=== PATIENT | male | born 1935 | race Caucasian/White ===

== ENCOUNTER 2018-05-04 11:21 | Outpatient (CLI) | payer MEDICARE, SELFPAY ==
[2018-05-05 12:06] LABS: PSA, Diagnostic 0.1 ng/ml (0-6.5)
== END 2018-05-04 11:41 ==
PROVIDERS: PCP Family Medicine; Visit Provider Urology
DX: C61 Malignant neoplasm of prostate (principal)
CPT/HCPCS: 36415; 84153

== ENCOUNTER 2018-05-10 12:34 | Outpatient (REF) | payer MEDICARE, SELFPAY ==
[2018-05-10 13:49] LABS: Sodium, Urine 95 mmol/L
[2018-05-10 13:51] LABS: Creatinine,Urine 160.13 mg/dL
[2018-05-10 13:58] LABS: CLEAVED CELLS 71 mmol/24h (40-220); Total Volume 750 ml
[2018-05-10 13:59] LABS: Creatinine,24hr Ur 1.12 g/24hr (0.95-2.49); Total Volume 750 ml
[2018-05-11 09:11] LABS: Magnesium 24hr Urine 136.5 mg/24h (73.0-122.0); Magnesium Random Urine 18.2 mg/dl; Phosphorus Urine 111.6 mg/dl; Phosphorus Urine 24hr 0.8 g/24h (0.4-1.3); Uric Acid Urine 60.7 mg/dl; Uric Acid Urine 24hr 455 mg/24h (250-750)
[2018-05-11 09:14] LABS: Calcium Urine 29.3 mg/dl; Calcium Urine 24 hr 220 mg/24hr (100-300)
[2018-05-11 16:09] LABS: Citrate Excretion, 24hr, U 635 mg/24 h; Urine Volume 750 mL
[2018-05-12 03:40] LABS: Oxalate Conc (mmol/L) 0.13 mmol/L; Oxalate Concentration 11.4 mg/L; Oxalate, U 8.8 mg/24 h (9.7 - 40.5); Urine Volume 750 mL
== END 2018-05-10 12:54 ==
LOC: LBN 12:34
PROVIDERS: PCP Family Medicine; Visit Provider Urology
DX: N20.0 Calculus of kidney (principal)
CPT/HCPCS: 82507; 83735; 81050; 82340; 82570; 83945; 84105; 84300; 84560

== ENCOUNTER 2018-08-09 11:32 | Outpatient (CLI) | payer MEDICARE, SELFPAY ==
[2018-08-10 10:09] LABS: PSA, Diagnostic 0.1 ng/ml (0-6.5)
== END 2018-08-09 11:52 ==
PROVIDERS: PCP Family Medicine; Visit Provider Urology
DX: C61 Malignant neoplasm of prostate (principal)
CPT/HCPCS: 36415; 84153

== ENCOUNTER 2018-11-05 11:28 | Outpatient (CLI) | payer MEDICARE, SELFPAY ==
[2018-11-08 11:07] LABS: PSA, Diagnostic 0.2 ng/ml (0-6.5)
== END 2018-11-05 11:48 ==
PROVIDERS: PCP Family Medicine; Visit Provider Urology
DX: R97.20 Elevated prostate specific antigen [PSA] (principal)
CPT/HCPCS: 36415; 84153

== ENCOUNTER 2019-02-08 12:53 | Outpatient (CLI) | payer MEDICARE, SELFPAY ==
[2019-02-09 09:34] LABS: PSA, Diagnostic 0.2 ng/ml (0-6.5)
== END 2019-02-08 13:13 ==
PROVIDERS: PCP Family Medicine; Visit Provider Family Medicine
DX: C61 Malignant neoplasm of prostate (principal); R97.20 Elevated prostate specific antigen [PSA]
CPT/HCPCS: 36415; 84153

== ENCOUNTER → 2019-02-24 13:48 | Outpatient (BNVA) | payer MEDICARE, SELFPAY | PROVIDERS: PCP Family Medicine; Referring Provider Family Medicine; Visit Provider Urology | DX: C61 Malignant neoplasm of prostate (principal); R39.15 Urgency of urination; Z87.442 Personal history of urinary calculi; Z90.79 Acquired absence of other genital organ(s) | CPT/HCPCS: 51798; 99203; 99214 ==

== ENCOUNTER 2019-08-22 11:54 | Outpatient (CLI) | payer MEDICARE, SELFPAY ==
[2019-08-23 10:29] LABS: PSA, Diagnostic 0.2 ng/mL (0.0-6.5)
== END 2019-08-22 12:14 ==
PROVIDERS: PCP Family Medicine; Visit Provider Urology
DX: C61 Malignant neoplasm of prostate (principal)
CPT/HCPCS: 36415; 84153

== ENCOUNTER 2019-12-16 09:54 | Outpatient (CLI) | payer MEDICARE, SELFPAY ==
[2019-12-17 23:29] LABS: COVID-19 RT-PCR Result NEGATIVE (Negative)
== END 2019-12-16 10:14 ==
PROVIDERS: PCP Family Medicine; Visit Provider Family Medicine
DX: Z20.828 Contact with and (suspected) exposure to other viral communicable diseases (principal)
CPT/HCPCS: U0003

== ENCOUNTER 2019-12-21 03:53 | Outpatient (CLI) | payer MEDICARE, SELFPAY ==
[2019-12-22 09:14] LABS: PSA, Diagnostic 0.2 ng/mL (0.0-6.5)
== END 2019-12-21 04:13 ==
PROVIDERS: PCP Family Medicine; Visit Provider Urology
DX: C61 Malignant neoplasm of prostate (principal)
CPT/HCPCS: 84153

== ENCOUNTER → 2020-01-03 13:37 | Outpatient (BNVA) | payer MEDICARE, SELFPAY | PROVIDERS: PCP Family Medicine; Referring Provider Family Medicine; Visit Provider Urology | DX: C61 Malignant neoplasm of prostate (principal); R39.15 Urgency of urination; N48.89 Other specified disorders of penis | CPT/HCPCS: 99213 ==

== ENCOUNTER 2020-04-20 11:40 | Emergency (ER) | payer MEDICARE, SELFPAY ==
[2020-04-20 11:43] VITALS: BP 147/76; PULSE 61; RESP 16; TEMP 36.4; O2SAT 97
--- NOTE | 2020-04-20 11:53 | W.ED.GENAD ---
Discharge Plan Disposition Patient Disposition: AGAINST MEDICAL ADVICE Condition: Stable Discharge Details Clinical Impression: Acute subdural hematoma, Right wrist sprain, Facial contusion, Fall Primary Care Provider: Arianne Tesfaye ED Provider: Laura David Home Meds and New Rx's Prescriptions: Continued selenium sulfide 2.5 % lotion See Rx Instructions Topical Q48 H PRN (Reason: rash) Qty: 120 RF: 10 ascorbic acid (vitamin C) 1,000 MG tablet 1,000 mg PO DAILY RF: 0 ibuprofen [Motrin IB] 200 MG tablet 2 tab PO QID PRNRF: 0 vitamin B complex [B Complete] 1 EACH tablet 1 ea PO DAILY RF: 0 glucosam-chond qu-tbumzk-uj ac 1 EACH capsule 2 cap PO DAILY RF: 0 BERBERIS 1 cap PO DAILY RF: 0 Curcumin 1 GM powder 1 cap Miscellaneous DAILY RF: 0 cholecalciferol (vitamin D3) [Vitamin D3] 2,000 UNIT capsule 2,000 unit PO BID RF: 0 cod liver oil (bulk) 1 ML oil 1 tsp Miscellaneous DAILY RF: 0 resveratrol 50 MG capsule 50 mg PO DAILY RF: 0 amlodipine 5 mg tablet 5 mg PO DAILY Qty: 90 RF: 4 Discharge Instructions Instructions: Intracranial Hematoma (ED), Contusion in Adults (ED), Wrist Sprain (ED) Additional Instructions: You are leaving the hospital AGAINST MEDICAL ADVICE. You were found to have an acute subdural hematoma which is a bleed within your brain. The bleeding in your brain can worsen which can lead to any disability or even . You are advised to call your primary care doctor immediately today or Thursday for follow-up. If your wrist pain persists or worsens, follow-up with your primary care doctor for reevaluation or repeat x-ray. You can also follow-up with orthopedics for further evaluation. Please return immediately to the emergency department if you develop any worsening or new concerning symptoms. Referrals: Emerson Robles MD [ [facility]FF PHYSICIAN] - Discharge Data Discharge Date/Time-TO BE ENTERED AT DEPARTURE: 04/20/20 15:15 Discharge Physician: Laura David Medical Decision Making 1130 -- 84-year-old male with a history of hypertension not on anticoagulation presents for evaluation after sent by Dr. Tesfaye for head injury 2 days ago. He states he tripped while he was walking and hit the right side of his face and head on the sidewalk. No report of LOC or vomiting. He appears in no acute distress. He also fell onto his right wrist and is having most pain with flexion and extension. There is significant edema to his right dorsal wrist but no deformity and he is neurovascular intact. He has ecchymosis to the right lateral orbit but no entrapment, edema. No midline spinal tenderness. No focal deficits. Will obtain CT head/facial bone/cervical spine and right wrist x-ray. Will give a dose of Tylenol. 1315 -- radiologist who reviewed CT images, there is a 730 mm subdural hematoma in the right temporoparietal region. No midline shift. Case discussed with [facility] to consult neurosurgery. 1415 -- called [facility] to confirm whether they have reached [facility] and they are still trying. 1500 --patient is requesting to leave. Discussed with patient that I am still waiting to hear from [facility] but he states he has no symptoms at this time and would prefer to go home. Despite my efforts, the patient has decided to leave against medical advice. He has a normal mental status and full decisional capacity. The patient understands his condition and the risks of leaving AMA, including BUT NOT LIMITED TO permanent disability, , etc., and has had an opportunity to ask questions about his medical condition. The patient has been informed that he may return for care at any time, and has been referred to his local medical physician for follow up MICHAEL. Patient stated that he had discussed his results with his family and they are aware of his decision. After patient discharge, [facility] returned the call at approximately 4 PM stating that they reviewed the images and would recommend patient be admitted to the hospital for observation and repeat CT imaging for determining any worsening hematoma. They were notified that patient left AMA. Called patient at home to check on him and he stated that he still remained asymptomatic. He was informed that [facility] agreed that he should be admitted for observation and repeat CT head imaging. Patient is still declining to return and is aware of the risks of and disability. He demonstrates capacity to make decisions. I asked patient if he would like me to call his daughter and he states that he has already discussed with his family and feels that there is no need. He is advised to call Dr. Tesfaye on Thursday morning for follow-up and return here immediately with any concerns. Medical Records Medical records reviewed: Yes I reviewed the patient's medical records. Imaging Data Radiologic Study: Radiologist's impression: CT HEAD CERV SPINE FACIAL WO CLINICAL HISTORY: s/p fall, R orbit ecchymoses, r/o fx. TECHNIQUE: Imaging Protocol: Axial computed tomography images with coronal and sagittal reformatted images were created and reviewed COMPARISON: CT HEAD WITHOUT CONTRAST from 11/30/2010 FINDINGS: CT Head: Ventricles and Extra axial spaces: Normal in size and morphology for the patient's age. Hemorrhage: There is a acute right convexity subdural hematoma. It measures approximately 7 mm in maximum thickness. The hematoma lies deep to the right frontal and temporal bones. There is no midline shift. Cerebral parenchyma: There are areas of decreased attenuation in the white matter most consistent with chronic microvascular ischemic changes. Midline shift: None. Brainstem/Cerebellum: Normal. Calvarium: Normal. Visualized Paranasal sinuses/Mastoids: Clear. Soft Tissues: Unremarkable. CT Face: Facial Bones: No definite fracture is noted in facial bones. Sinuses and Mastoids: Unremarkable. Globes, extraocular muscles, optic nerves and retrobulbar fat: Normal. Upper aerodigestive tract: Normal. Mandible and bilateral temporomandibular joints: Normal. Soft tissues: Normal. CT Cervical Spine: Bones: No acute fracture or subluxation. Moderate degenerative changes are present throughout the cervical spine. Soft Tissues: Unremarkable. Lung Apices: Clear. IMPRESSION: 1. Right frontal temporal acute subdural hematoma. No midline shift. It measures 7 mm in maximal thickness. 2. No skull fracture. 3. No acute fracture or subluxation in the cervical spine. 4. No acute facial fracture. 5. Results of this exam have been verbally communicated with provider. XR WRIST RT COMPLETE CLINICAL HISTORY: s/p fall, edema/tender dorsal, r/o acute fracture. TECHNIQUE: 2D digital imaging was performed. COMPARISON: No exams were available for comparison FINDINGS: BONES: No acute fracture is present. No bony destructive lesion is seen. JOINTS: The carpal bones are normally aligned. There are degenerative changes of the wrist. SOFT TISSUE: Normal. IMPRESSION: No acute fracture or dislocation. HPI General Mode of arrival: ambulatory. Date/Time Provider Initiated Documentation: 04/20/20 11:52. Limitations to Documentation: no limitations. Information obtained by: patient. HPI Narrative: Patient is a an 84-year-old male with a history of prostate cancer treated with prostatectomy, hypertension and previous HI who presents for evaluation after fall with head injury and right wrist pain 2 days ago. Patient states he was walking on the sidewalk around 6 PM Thursday evening when he states he tripped on the sidewalk and hit his right head on the ground. He states he was able to get himself up and denies any LOC, vomiting, headache, dizziness or neck pain. Patient states over the next 4 hours he has some memory loss about the events. He states he did sustain a bruise to his right thigh and injury to his right wrist but he states since later that evening until now has no complaint of headache, dizziness, neck pain, nausea, vomiting or any other ongoing memory issues. Patient states he put his right hand out to brace his fall and has right wrist pain that occurs mainly with flexion and extension. He also states that he called his primary care doctor today and they advised that he come in here for further evaluation. Denies any chest pain, shortness of breath, abdominal pain or any other acute complaints other than his right wrist pain. Related Data Home Medications Medication Instructions Recorded Confirmed Berberis 1 cap PO DAILY 09/17/12 02/27/20 ascorbic acid (vitamin C) 1,000 mg PO DAILY 09/17/12 04/20/20 glucosam-chond bq-bzdvcd-md ac 2 cap PO DAILY 09/17/12 04/20/20 ibuprofen [Motrin IB] 2 tab PO QID PRN 09/17/12 04/20/20 vitamin B complex [B Complete] 1 ea PO DAILY 09/17/12 04/20/20 Curcumin 1 cap MISCELLANEOUS DAILY 09/20/12 04/20/20 cholecalciferol (vitamin D3) 2,000 unit PO BID 11/16/14 04/20/20 [Vitamin D3] cod liver oil (bulk) 1 tsp MISCELLANEOUS DAILY 12/17/15 04/20/20 resveratrol 50 mg PO DAILY 12/17/15 04/20/20 selenium sulfide 2.5 % lotion See Rx Instructions TOPICAL Q48 H 08/29/19 04/20/20 PRN #120 ml amlodipine 5 mg tablet 5 mg PO DAILY #90 tab 09/12/19 04/20/20 Previous Rx's Medication Instructions Recorded selenium sulfide 2.5 % lotion See Rx Instructions TOPICAL Q48 H 08/29/19 PRN #120 ml amlodipine 5 mg tablet 5 mg PO DAILY #90 tab 09/12/19 Allergies Allergy/AdvReac Type Severity Reaction Status Date / Time terazosin HCl [From Hytrin] AdvReac Severe orthostatic Verified 04/20/20 11:49 hypotension General Stated Complaint: Trauma SONDRA: 3 Review of Systems All systems reviewed & are unremarkable except as noted in HPI and below Constitutional Constitutional: Reports as per HPI, Denies chills and Denies fever(s) Eyes Eyes: Denies blurry vision ENT Ears, Nose, Mouth, and Throat: Denies dizziness, Denies sore throat and Denies throat swelling Cardiovascular Cardiovascular: Denies chest pain and Denies dyspnea Respiratory Respiratory: Denies cough and Denies dyspnea Gastrointestinal Gastrointestinal: Denies abdominal pain, Denies diarrhea and Denies vomiting Genitourinary Genitourinary: Denies hematuria and Denies dysuria Musculoskeletal Musculoskeletal: Denies back pain, Denies numbness and Reports other (R wrist pain) Integumentary/Breasts Skin/Breast: Denies lesions and Denies rash Neurologic Neurologic: Denies dizziness, Denies localized weakness and Denies numbness Allergic/Immunologic Allergic/Immunologic: Denies throat swelling [facility] Medical History (Updated 04/20/20 @ 15:10 by Laura David DO) Abnormal visual perception (09/11/15) Atrial arrhythmia 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 of infx cyst (Karin) prostatic stones; S/P surgery Urinary urgency Surgical History (Updated 08/29/19 @ 13:12 by Arianne Tesfaye MD, [place]) CARDIAC CATH LEFT Colonoscopy - MAC 2003;tubular adenoma History of prostate surgery History of surgical procedure PROSTATE REPAIR calcification w/ residual infx-surgery Prostatectomy Repair of inguinal hernia RIGHT Right index finger Excision of mucous cyst Status post inguinal hernia repair Family History Mother Diabetes Failure to thrive Father Stroke X 2 Asthma Sister Rheumatoid arthritis Sister Personal history of malignant neoplasm COLON Grandfather Stroke Grandfather Personal history of malignant neoplasm COLON Grandmother Personal history of malignant neoplasm BREAST Grandmother No problems noted. Son No problems noted. Son No problems noted. Daughter No problems noted. Social History Smoking/Tobacco Use Status: Former Tobacco Use Alcohol Intake: current Alcohol Intake frequency: 3 or more drinks per day Alcohol type: wine Drug use: Occasionally Substance use type: marijuana Do you feel safe in your relationship?: Yes Exam Const General: cooperative, healthy appearing and no acute distress Orientation: alert, awake and oriented x3 HENMT Head: normal to inspection Ears: hearing grossly normal bilaterally, external ears normal and TM's normal bilaterally General nose exam: external nose normal Face and sinus: normal facial exam Mouth: oral mucosae normal Teeth and gingiva: dentition normal Throat: posterior oropharynx normal Eyes General: appearance normal, both eyes and all related structures Periorbital: periorbital findings abnormal right periorbital tenderness (minimal) and periorbital ecchymosis (lateral and inferior); no erythema Eyelids: eyelids normal Pupils: PERRL EOM: EOM intact bilaterally Neck Neck: normal visual inspection Lymphatic: no lymphadenopathy noted Chest Chest: normal inspection of the chest Resp Effort & Inspection: normal respiratory effort and able to speak in complete sentences Auscultation: clear to auscultation bilaterally Cardio Rate: regular rate Rhythm: regular rhythm GI Inspection: normal to inspection Palpation: soft, not firm, no guarding, no hepatosplenomegaly, no masses and nontender Auscultation: normal bowel sounds Back/Spine/Pelvis Back: no CVA tenderness Cervical Spine: No cervical spinal tenderness Thoracic/Lumbar Spine: No thoracic spinal tenderness and No lumbar spinal tenderness Skin General skin exam: no rashes or lesions noted Neuro General: patient alert, patient awake, patient oriented x3, gait normal, moves all extremities, no meningeal signs and no focal motor deficits Cognition: normal cognition Speech: speech normal Gait: normal gait Motor: muscle tone normal throughout and strength 5/5 throughout Sensory Exam: no sensory deficits noted Extrem General: normal to inspection and capillary refill normal Right upper extremity: shoulder/upper arm Details: normal ROM, elbow/forearm Details: normal ROM and wrist Details: tenderness Location: of the distal radius, of the distal ulna and of the dorsal wrist, swelling Location: of the dorsal wrist and abnormal ROM Details: pain with active ROM during Details: with extension and with flexion and pain with passive ROM during Details: with extension and with flexion; no ecchymosis and no crepitus Left upper extremity: normal to inspection and full ROM Right lower extremity: full ROM Left lower extremity: full ROM Psych Appearance: grossly normal Mental Status: mental status grossly normal Speech and Movement: speech and movement normal Affect: normal affect Thought Process: normal Course Vital Signs Vital signs: Vital Signs Temperature 97.5 F L 04/20/20 11:43 Pulse 61 04/20/20 11:43 Respiratory Rate 16 04/20/20 11:43 Blood Pressure 147/76 H 04/20/20 11:43 Pulse Oximetry 97 04/20/20 11:43 Temperature 97.5 F L 04/20/20 11:43 Temperature Source Skin 04/20/20 11:43 Pulse 61 04/20/20 11:43 Respiratory Rate 16 04/20/20 11:43 Respiratory Effort 04/20/20 11:50 Blood Pressure 147/76 H 04/20/20 11:43 Blood Pressure Position Sitting 04/20/20 11:43 Pulse Oximetry 97 04/20/20 11:43 Oxygen Delivery Method Room Air 04/20/20 11:43 Oxygen Flow Rate 0 04/20/20 11:43 Pain Level 8 04/20/20 11:43
--- NOTE | 2020-04-20 12:00 | DI.RAD_ITS ---
EXAM: XR WRIST RT COMPLETE CLINICAL HISTORY: s/p fall, edema/tender dorsal, r/o acute fracture. TECHNIQUE: 2D digital imaging was performed. COMPARISON: No exams were available for comparison FINDINGS: BONES: No acute fracture is present. No bony destructive lesion is seen. JOINTS: The carpal bones are normally aligned. There are degenerative changes of the wrist. SOFT TISSUE: Normal. IMPRESSION: No acute fracture or dislocation. DATA REPOSITORY: RADIATION DOSE DELIVERED:
[2020-04-20] MEDS: Acetaminophen 500 MG TAB 1000 MG PO (12:24)
--- NOTE | 2020-04-20 12:46 | DI.CT_ITS ---
EXAM: CT HEAD CERV SPINE FACIAL WO CLINICAL HISTORY: s/p fall, R orbit ecchymoses, r/o fx. TECHNIQUE: Imaging Protocol: Axial computed tomography images with coronal and sagittal reformatted images were created and reviewed COMPARISON: CT HEAD WITHOUT CONTRAST from 11/30/2010 FINDINGS: CT Head: Ventricles and Extra axial spaces: Normal in size and morphology for the patient's age. Hemorrhage: There is a acute right convexity subdural hematoma. It measures approximately 7 mm in ma ximum thickness. The hematoma lies deep to the right frontal and temporal bones. There is no midlin e shift. Cerebral parenchyma: There are areas of decreased attenuation in the white matter most consistent wit h chronic microvascular ischemic changes. Midline shift: None. Brainstem/Cerebellum: Normal. Calvarium: Normal. Visualized Paranasal sinuses/Mastoids: Clear. Soft Tissues: Unremarkable. CT Face: Facial Bones: No definite fracture is noted in facial bones. Sinuses and Mastoids: Unremarkable. Globes, extraocular muscles, optic nerves and retrobulbar fat: Normal. Upper aerodigestive tract: Normal. Mandible and bilateral temporomandibular joints: Normal. Soft tissues: Normal. CT Cervical Spine: Bones: No acute fracture or subluxation. Moderate degenerative changes are present throughout the cer vical spine. Soft Tissues: Unremarkable. Lung Apices: Clear. IMPRESSION: 1. Right frontal temporal acute subdural hematoma. No midline shift. It measures 7 mm in maximal th ickness. 2. No skull fracture. 3. No acute fracture or subluxation in the cervical spine. 4. No acute facial fracture. 5. Results of this exam have been verbally communicated with provider. RADIATION DOSE DELIVERED: 2,018.14mGy.cm Total DLP DATA REPOSITORY: All CT scans at this facility are submitted to the National Radiology Data Registry (NRDR) Dose Index Registry (DIR) with the [employer] ([employer]). RADIATION OPTIMIZATION: All CT scans at this facility use at least one of these dose optimization te chniques: automated exposure control; mA and/or kV adjustment per patient size (includes targeted exa ms where dose is matched to clinical indication); or iterative reconstruction.
[2020-04-20 13:32] VITALS: BP 156/75; PULSE 59; RESP 18; TEMP 36.9; O2SAT 99
[2020-04-20 14:15] VITALS: BP 140/75; PULSE 59; RESP 18; TEMP 36.7; O2SAT 99
[2020-04-20 15:12] VITALS: BP 159/72; PULSE 60; RESP 20; TEMP 36.7; O2SAT 98
== END 2020-04-20 15:15 | disposition left against medical advice (07) ==
PROVIDERS: Emergency Provider Physician Assistant; PCP Family Medicine
DX: S06.5X0A Traumatic subdural hemorrhage without loss of consciousness, initial encounter (principal); S63.591A Other specified sprain of right wrist, initial encounter; S05.11XA Contusion of eyeball and orbital tissues, right eye, initial encounter; W01.198A Fall on same level from slipping, tripping and stumbling with subsequent striking against other object, initial encounter; I10 Essential (primary) hypertension
CPT/HCPCS: 99284; 70450; 70486; 72125; 73110; 99285; L0172

== ENCOUNTER 2020-04-21 14:02 | Emergency (ER) | payer MEDICARE, SELFPAY ==
--- NOTE | 2020-04-21 14:00 | DI.CT_ITS ---
EXAM: CT HEAD WO CLINICAL HISTORY: known subdural, left ama yesterday. TECHNIQUE: Imaging Protocol: Axial computed tomography images with coronal and sagittal reformatted images were created and reviewed COMPARISON: CT CT HEAD CERV SPINE FACIAL WO from 04/20/2020 FINDINGS: Ventricles and Extra axial spaces: Normal in size and morphology for the patient's age. Hemorrhage: The right frontal temporal high density subdural hematoma is unchanged compared to the pr ior examination. Maximum diameter is 1 cm. This is deep to the right frontal bone. No new hemorrha ge is identified. Cerebral parenchyma: There are areas of decreased attenuation in the white matter most consistent wit h chronic microvascular ischemic change. Midline shift: None. Brainstem/Cerebellum: Normal. Calvarium: Normal. Visualized Paranasal sinuses/Mastoids: Clear. Soft Tissues: Stable mild right supraorbital soft tissue edema. IMPRESSION: Stable right frontal temporal subdural hematoma. No change since the examination from 04/10/2020. RADIATION DOSE DELIVERED: 781.08mGy.cm Total DLP DATA REPOSITORY: All CT scans at this facility are submitted to the National Radiology Data Registry (NRDR) Dose Index Registry (DIR) with the [employer] ([employer]). RADIATION OPTIMIZATION: All CT scans at this facility use at least one of these dose optimization te chniques: automated exposure control; mA and/or kV adjustment per patient size (includes targeted exa ms where dose is matched to clinical indication); or iterative reconstruction.
[2020-04-21 14:10] VITALS: BP 148/86; PULSE 57; RESP 16; TEMP 36.1; O2SAT 99
--- NOTE | 2020-04-21 14:10 | ED.GENADUL_ITS ---
Discharge Plan Disposition Patient Disposition: HOME Condition: Stable Discharge Details Clinical Impression: Subdural hematoma Primary Care Provider: Arianne Tesfaye ED Provider: Wellington Wang Home Meds and New Rx's Prescriptions: New levetiracetam [Keppra] 500 mg tablet 500 mg PO BID 7 Days Qty: 14 RF: 0 Continued selenium sulfide 2.5 % lotion See Rx Instructions Topical Q48 H PRN (Reason: rash) Qty: 120 RF: 10 ascorbic acid (vitamin C) 1,000 MG tablet 1,000 mg PO DAILY RF: 0 ibuprofen [Motrin IB] 200 MG tablet 2 tab PO QID PRNRF: 0 vitamin B complex [B Complete] 1 EACH tablet 1 ea PO DAILY RF: 0 glucosam-chond fw-fquajs-qd ac 1 EACH capsule 2 cap PO DAILY RF: 0 BERBERIS 1 cap PO DAILY RF: 0 Curcumin 1 GM powder 1 cap Miscellaneous DAILY RF: 0 cholecalciferol (vitamin D3) [Vitamin D3] 2,000 UNIT capsule 2,000 unit PO BID RF: 0 cod liver oil (bulk) 1 ML oil 1 tsp Miscellaneous DAILY RF: 0 resveratrol 50 MG capsule 50 mg PO DAILY RF: 0 amlodipine 5 mg tablet 5 mg PO DAILY Qty: 90 RF: 4 Discharge Instructions Instructions: Intracranial Hematoma (ED) Additional Instructions: At this time your CT is stable. I personally spoke with neurosurgery at [facility], Dr. Barry. He recommended obtaining blood work. He recommended initiating a single gram of Keppra now and I will place you on a prescription for the next 7 days at 500 mg twice a day. He feels as though you can be safely discharged home and followed as an outpatient in his clinic. The clinic number is [phone]. His office should be calling you in approximately 1 week for outpatient evaluation in the next 2-4 weeks. They will likely perform another CT at that time. Please watch for new or worsening symptoms and return to the ER for any concerns. Discharge Data Discharge Date/Time-TO BE ENTERED AT DEPARTURE: 04/21/20 14:25 Medical Decision Making 84-year-old gentleman who is not anticoagulated presents to the ER for reeva luation. He fell 3 days ago, was seen in the ER yesterday, diagnosed with a subdural hematoma and subsequently left AMA prior to neurosurgery consultation. He denies any new or evolving symptoms since he left AMA yesterday. He thought about leaving AMA and felt as though maybe he made a mistake so came back to the ER for evaluation. Patient denies headache, visual changes, neck pain, chest pain, shortness of breath, numbness, tingling, weakness, incontinence. Patient states that he ate before he came in, is not hungry, and is willing to await a repeat CT and neurosurgery consultation. Patient appears well, nontoxic, neurologically intact. Will obtain repeat CT imaging of his head and then contact neurosurgery. CT imaging read by [facility] radiology as a unchanged subdural hematoma. Call was placed to neurosurgery at [facility]. I was able to speak with neurosurgery, Dr. Barry. He feels as though the patient can safely be discharged from our ER given the stable CT imaging. He wa s able to review the imaging himself. He does recommend a single loading dose of 1 g Keppra now and a prescription of 500 mg twice daily for the next 7 days. He also recommends obtaining a CBC and coags. He was given the patient's name and number, he gave me his clinic number. Plan is to have his office contact the patient in the next 1-2 weeks for reassessment in 2-4 weeks. They will plan to reevaluate the patient in the clinic and also repeat CT imaging. This plan was made known to patient and his . He was given 1 g p.o. Keppra and blood drawn. Laboratory values unremarkable. Patient remains neurologically intact. Patient to be discharged with the plan given by neurosurgery. Patient and family are comfortable with this plan and have no additional questions or concerns. Medical Records Medical records reviewed: Yes I reviewed the patient's medical records. Lab Data Lab results reviewed: Yes I reviewed the patient's lab results. Lab results narrative: Laboratory Tests Range/Units 04/21/20 04/21/20 15:50 15:50 WBC (4.4-10.8) 10^3/uL 6.91 RBC (4.36-5.78) 10^6/uL 4.33 L Hgb (13.5-17.5) g/dL 13.8 Hct (40.0-50.0) % 41.8 MCV (80-95) fL 96.5 H MCH (27.0-33.0) pg 31.9 MCHC (32.0-36.0) % 33.0 RDW (11.8-14.1) % 13.8 Plt Count (130-400) 10^3/uL 240 MPV (8.0-11.0) fL 8.8 Immature Gran % 0.3 Neutrophils % 67.9 Lymphocytes % 21.0 Monocytes % 9.1 Eosinophils % 1.0 Basophils % 0.7 Nucleated RBC % % 0 Absolute Neutrophils (1.2-6.7) 10^3/uL 4.69 Absolute Lymphocytes (1.2-3.4) 10^3/uL 1.45 Absolute Monocytes (0.1-0.8) 10^3/uL 0.63 Absolute Eosinophils (0.0-0.7) 10^3/uL 0.07 Absolute Basophils (0.0-0.2) 10^3/uL 0.05 PT (9.3-11.0) sec 9.4 INR (0.9-1.1) 0.9 APTT (21.0-31.4) sec 20.7 L HPI General Mode of arrival: ambulatory . Date/Time Provider Initiated Documentation: 04/21/20 14:10 . Limitations to Documentation: no limitations . Information obtained by: patient and family . HPI Narrative: This is a 84-year-old gentleman with past medical history that includes BPH, renal stones, low back pain, hypertension, [place], presenting with his family today for evaluation. Patient had a mechanical fall 3 days ago striking the right side of his head. He was seen in the ER yesterday, diagnosed with a subdural hematoma and subsequently left AMA. Patient reports that he reviewed the records today and felt as though it may be leaving AMA was the wrong thing to do. He reports that he has a subtle sensation to the right side of his head but denies any true pain. This sensation was there yesterday and has not changed. He denies global headache, visual change, neck pain, chest pain, shortness of breath, abdominal pain, nausea, vomiting, incontinence, numbness, tingling, weakness. He has not fallen since he left the ER AMA. He simply wants to make sure everything is okay. Related Data Home Medications Medication Instructions Recorded Confirmed Berberis 1 cap PO DAILY 09/17/12 04/21/20 ascorbic acid (vitamin C) 1,000 mg PO DAILY 09/17/12 04/21/20 glucosam-chond vk-glrcvo-pc ac 2 cap PO DAILY 09/17/12 04/21/20 ibuprofen [Motrin IB] 2 tab PO QID PRN 09/17/12 04/21/20 vitamin B complex [B Complete] 1 ea PO DAILY 09/17/12 04/21/20 Curcumin 1 cap MISCELLANEOUS DAILY 09/20/12 04/21/20 cholecalciferol (vitamin D3) 2,000 unit PO BID 11/16/14 04/21/20 [Vitamin D3] cod liver oil (bulk) 1 tsp MISCELLANEOUS DAILY 12/17/15 04/21/20 resveratrol 50 mg PO DAILY 12/17/15 04/21/20 selenium sulfide 2.5 % lotion See Rx Instructions TOPICAL Q48 H 08/29/19 04/21/20 PRN #120 ml amlodipine 5 mg tablet 5 mg PO DAILY #90 tab 09/12/19 04/21/20 levetiracetam [Keppra] 500 mg PO BID 7 Days #14 tab 04/21/20 Previous Rx's Medication Instructions Recorded selenium sulfide 2.5 % lotion See Rx Instructions TOPICAL Q48 H 08/29/19 PRN #120 ml amlodipine 5 mg tablet 5 mg PO DAILY #90 tab 09/12/19 levetiracetam [Keppra] 500 mg PO BID 7 Days #14 tab 04/21/20 Allergies Allergy/AdvReac Type Severity Reaction Status Date / Time terazosin HCl [From Hytrin] AdvReac Severe orthostatic Verified 04/21/20 14:16 hypotension General SONDRA: 3 Review of Systems Constitutional Constitutional: Denies fever(s), Denies headache(s) and Denies weakness Eyes Eyes: Denies change in vision ENT Ears, Nose, Mouth, and Throat: Denies headache(s) and Denies neck pain Cardiovascular Cardiovascular: Denies chest pain and Denies dyspnea Respiratory Respiratory: Denies cough and Denies dyspnea Gastrointestinal Gastrointestinal: Denies abdominal pain, Denies nausea and Denies vomiting Musculoskeletal Musculoskeletal: Denies neck pain, Denies numbness and Denies tingling Neurologic Neurologic: Denies headache(s), Denies numbness, Denies tingling and Denies weakness [facility] Medical History Abnormal visual perception (09/11/15) Atrial arrhythmia 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 of infx cyst (Karin) prostatic stones; S/P surgery Urinary urgency Surgical History CARDIAC CATH LEFT Colonoscopy - MAC 2003;tubular adenoma History of prostate surgery History of surgical procedure PROSTATE REPAIR calcification w/ residual infx-surgery Prostatectomy Repair of inguinal hernia RIGHT Right index finger Excision of mucous cyst Status post inguinal hernia repair Family History Mother Diabetes Failure to thrive Father Stroke X 2 Asthma Sister Rheumatoid arthritis Sister Personal history of malignant neoplasm COLON Grandfather Stroke Grandfather Personal history of malignant neoplasm COLON Grandmother Personal history of malignant neoplasm BREAST Grandmother No problems noted. Son No problems noted. Son No problems noted. Daughter No problems noted. Social History Smoking/Tobacco Use Status: Former Tobacco Use Alcohol Intake: current Alcohol Intake frequency: 3 or more drinks per day Alcohol type: wine Drug use: Occasionally Substance use type: marijuana Do you feel safe in your relationship?: Yes Exam Const General: cooperative, healthy appearing, comfortable and no acute distress Orientation: alert, awake and oriented x3 HENMT Head: no palpable skull fracture, normocephalic and atraumatic Head images: 1. Mild ecchymosis and discomfort to palpation. Ears: external ears normal, TM's normal bilaterally and EAC's normal General nose exam: external nose normal Face and sinus: normal facial exam Mouth: moist mucous membranes Throat: posterior oropharynx normal Eyes Periorbital: periorbital findings abnormal (Ecchymosis as already described) Eyelids: eyelids normal Conjunctivae: conjunctivae normal Sclera: sclerae normal Cornea: corneas normal Pupils: PERRL EOM: EOM intact bilaterally Direct ophthalmoscopy: normal light reflex Neck Neck: normal visual inspection, full ROM, trachea midline, supple and nontender Resp Effort & Inspection: normal respiratory effort and able to speak in complete sentences Auscultation: clear to auscultation bilaterally Cardio Rate: regular rate Rhythm: regular rhythm GI Palpation: soft and nontender Skin General skin exam: no rashes or lesions noted Neuro General: patient alert, patient awake, patient oriented x3, moves all extremities and no focal motor deficits Cranial Nerves: CN's II-XI intact bilaterally Cognition: normal cognition Speech: speech normal Gait: normal gait Motor: muscle tone normal throughout Sensory Exam: no sensory deficits noted Coordination: Does not sway with eyes open Extrem General: normal to inspection, full ROM and capillary refill normal Psych Appearance: grossly normal Mental Status: mental status grossly normal
--- NOTE | 2020-04-21 15:02 | DI.VRAD_ITS ---
PROCEDURE INFORMATION: Exam: CT Head Without Contrast Exam date and time: 04/21/2020 2:34 PM Age: 84 years old Clinical indication: Injury or trauma; Fall; Blunt trauma (contusions or hematomas); Injury details: Fell , scanned Thursday but left ama, now back for follow up; Additional info: Bruising around R orbit TECHNIQUE: Imaging protocol: Computed tomography of the head without contrast. COMPARISON: CT HEAD CERV SPINE FACIAL WO 04/20/2020 12:35 PM FINDINGS: Brain: Right frontotemporal high density subdural hematoma again identified and appears unchanged in size since yesterday. Contours of the hematoma are lobulated in frontal region. Maximum AP diameter of the hematoma against the frontal bone measures approximately 1 cm. Maximum transverse diameter the hematoma deep to the lateral temporal bone also measures approximately 1 cm. Maximum AP diameter hematoma against the anterior temporal measures approximately 8 mm. No midline shift. Mild diffuse parenchymal atrophy most marked in frontal lobes. Cerebral ventricles: No ventriculomegaly. Bones/joints: Unremarkable. No acute fracture. Paranasal sinuses: Visualized sinuses are unremarkable. No fluid levels. Mastoid air cells: Visualized mastoid air cells are well aerated. Vasculature: Intracranial arterial calcifications of cavernous carotid arteries. Soft tissues: Stable mild right supraorbital soft tissue edema. IMPRESSION: 1. Right frontotemporal subdural hematoma unchanged from yesterday. 2. No midline shift. 3. Parenchymal atrophy most marked in the frontal lobes. Dictated and Authenticated by: Nisreen Sy MD. Ordering:MARY Paris MD
[2020-04-21 15:53] LABS: Abs Immature Grans 0.02 10^3/uL (0.0-0.06); Absolute Basophil Count 0.05 10^3/uL (0.0-0.2); Absolute Eosinophil Count 0.07 10^3/uL (0.0-0.7); Absolute Lymphocyte Count 1.45 10^3/uL (1.2-3.4); Absolute Monocyte Count 0.63 10^3/uL (0.1-0.8); Absolute Neutrophil Count 4.69 10^3/uL (1.2-6.7); Basophils % 0.7; HCT 41.8 % (40.0-50.0); HGB 13.8 g/dL (13.5-17.5); Immature Grans % 0.3; MCH 31.9 pg (27.0-33.0); MCV 96.5 fL (80-95); MPV 8.8 fL (8.0-11.0); Monocytes % 9.1; Neutrophils % 67.9; Nucleated RBC 0 %; Platelet Count 240 10^3/uL (130-400); RBC 4.33 10^6/uL (4.36-5.78); RDW 13.8 % (11.8-14.1); RDW-SD 49.1 fL; WBC 6.91 10^3/uL (4.4-10.8)
--- NOTE | 2020-04-21 15:57 | NUR.NOTE ---
Addendum entered by Talia Cuevas 04/22/20 09:06: Today I faxed [place] [facility]: provider notes 04/20 and 04/21; radiology reports 04/20 and 04/21; labs 04/21. Talia Cuevas To the fax number below. Original Note: Nursing Note: To be faxed 04/22: provider notes from 04/20 and 04/21 and the labs from 04/21. Talia Cuevas Fax [facility] [phone]
[2020-04-21] MEDS: levETIRAcetam 250 MG TAB 1000 MG PO (16:05)
[2020-04-21 16:07] LABS: INR 0.9 (0.9-1.1); PTT Activated 20.7 sec (21.0-31.4); Prothrombin Time 9.4 sec (9.3-11.0)
[2020-04-21 16:24] VITALS: BP 148/81; PULSE 57; RESP 14; TEMP 36.6; O2SAT 98
== END 2020-04-21 14:25 | disposition home or self-care (01) ==
PROVIDERS: Emergency Provider Physician Assistant; PCP Family Medicine
DX: S06.5X0A Traumatic subdural hemorrhage without loss of consciousness, initial encounter (principal); W19.XXXA Unspecified fall, initial encounter; I10 Essential (primary) hypertension
CPT/HCPCS: 36415; 99284; 70450; 85025; 85610; 85730

== ENCOUNTER 2020-06-04 00:57 | Outpatient (CLI) | payer MEDICARE, SELFPAY ==
--- NOTE | 2020-06-04 08:30 | DI.CT_ITS ---
EXAM: CT HEAD WO CLINICAL HISTORY: F/U AND assess subdural HEMATOMA,FACIAL CONTUSION,S06.5X9A,S00.83XA TECHNIQUE: COMPARISON: CT CT HEAD WO from 04/21/2020 FINDINGS: Noncontrast cranial CT was performed. Examination is compared with previous examination of April 05. Previously described right frontal temporal subdural hematoma appears to have resolved since th e prior examination. No new subdural hematoma seen. Moderate generalized cerebral atrophy noted. No evidence of acute intracranial hemorrhage, mass effect, or midline shift. Calvarium appears intac t. The orbital and temporal bone structures appear intact. Mastoid air cells and visualized paranasal s inuses are clear. IMPRESSION: Interval resolution of previously noted right frontal/temporal subdural hematoma. No evidence of acu te process. RADIATION DOSE DELIVERED: 791.67mGy.cm Total DLP
== END 2020-06-04 01:17 ==
PROVIDERS: PCP Family Medicine; Visit Provider Family Medicine
DX: S00.83XA Contusion of other part of head, initial encounter (principal); Z87.820 Personal history of traumatic brain injury
CPT/HCPCS: 70450

== ENCOUNTER 2020-08-06 18:28 | Outpatient (REF) | payer MEDICARE, SELFPAY ==
--- NOTE | 2020-08-06 13:15 | SKI_PTH ---
PATIENT: Edgard Beckman LOC: [facility] U#:[id number] AGE/SX: 84/M ROOM: RE08/06/[address]: Eugenio Pagan DO : 1935 BED: DIS: 08/06/2020 SPEC #: [id number] RECD: 08/06/20 18:32 STATUS: DAKSHA REQ #: [id number] SHEILA: 08/06/20 13:[address]: Eugenio Pagan DEPT: Surgical Specimen RECD BY: Luciana Koehler ENTERED: 08/06/20 18:32 SP TYPE: SKI OTHR DR: Arianne Tesfaye MD, DC Tissues: 1 - SKIN BIOPSY(SHAVE/PUNCH) Procedures: SKIN LEVEL 4 Comments: [id number]
== END 2020-08-06 18:48 ==
LOC: LBN 18:28
PROVIDERS: PCP Family Medicine; Visit Provider Otolaryngology Otolaryngology/Facial Plastic Surgery
DX: L57.0 Actinic keratosis (principal)
CPT/HCPCS: 88305

== ENCOUNTER → 2020-09-25 14:26 | Outpatient (BNVA) | payer MEDICARE, SELFPAY | PROVIDERS: PCP Family Medicine; Referring Provider Family Medicine; Visit Provider Urology | DX: K65.0 Generalized (acute) peritonitis (principal); C61 Malignant neoplasm of prostate | CPT/HCPCS: 81003; 99213 ==

== ENCOUNTER 2020-10-02 02:10 | Outpatient (CLI) | payer MEDICARE, SELFPAY ==
--- NOTE | 2020-10-02 07:45 | DI.CT_ITS ---
EXAM: CT PELVIC W CLINICAL HISTORY: r/o abcess, lymphocele,CELLULITIS,L03.90. TECHNIQUE: Imaging Protocol: Axial computed tomography images with coronal and sagittal reformatted images were created and reviewed. CONTRAST MATERIAL: Intravenous: Omnipaque 350 Contrast volume:100 contrast route:IV - Oral: yes / COMPARISON: CT ABD PELVIS WITH CONTRAST from 06/27/2014 CT ABD PELVIS WITH CONTRAST from 06/27/2014 FINDINGS: There is skin thickening of the penis and scrotum as well as mild stranding in the anterior subcutane ous fat of the lower abdominal wall and groin regions. There is no drainable fluid collection or abs cess. there has been previous bilateral inguinal hernia repair. Patient is status post prostatecto my. The bladder is unremarkable. There is prominent diverticulosis of the descending and sigmoid co juan but no evidence of diverticulitis. A cyst is a large cyst is noted at the lower pole of the left kidney. Other smaller left renal cysts are seen. There are few tiny nonobstructing stones at the l ower pole of the left kidney. The aorta and iliac arteries show mild calcification but normal in kristian meter. Degenerative disc changes are seen from L3 4 through L5-S1. IMPRESSION: Findings consistent with cellulitis. No evidence of abscess or lymphocele. RADIATION DOSE DELIVERED: 457.5mGy.cm Total DLP DATA REPOSITORY: All CT scans at this facility are submitted to the National Radiology Data Registry (NRDR) Dose Index Registry (DIR) with the [employer] (A[employer]). RADIATION OPTIMIZATION: All CT scans at this facility use at least one of these dose optimization te chniques: automated exposure control; mA and/or kV adjustment per patient size (includes targeted exa ms where dose is matched to clinical indication); or iterative reconstruction.
[2020-10-02] MEDS: Breeza Beverage 473 ML BTL PO ×2 (12:26→12:27)
[2020-10-02] MEDS: Omnipaque 350 MG/ML 50 ML BTL IJ (12:27)
[2020-10-02] MEDS: Omnipaque 350 MG/ML 100 ML BTL IJ (13:57)
[2020-10-02] MEDS: Normal Saline - Diluent 50 ML VIAL IV (13:58)
[2020-10-02 21:58] LABS: PSA, Diagnostic 0.3 ng/mL (0.0-6.5)
== END 2020-10-02 02:30 ==
PROVIDERS: PCP Family Medicine; Visit Provider Urology
DX: C61 Malignant neoplasm of prostate (principal); L03.818 Cellulitis of other sites; Z90.79 Acquired absence of other genital organ(s); N20.0 Calculus of kidney
CPT/HCPCS: 36415; 72193; 82565; 84153; J3490; Q9967

== ENCOUNTER 2020-10-07 12:16 | Emergency (ER) | payer MEDICARE, SELFPAY ==
[2020-10-07 12:20] VITALS: BP 134/67; PULSE 58; RESP 16; TEMP 36.2; O2SAT 100
--- NOTE | 2020-10-07 12:30 | ED.GENADUL_ITS ---
Discharge Plan Disposition Patient Disposition: HOME Condition: Improving Discharge Details Clinical Impression: Visit for wound check Primary Care Provider: Arianne Tesfaye ED Provider: Roberto Rosenbaum Home Meds and New Rx's Prescriptions: Continued nystatin 100,000 unit/gram powder 1 applic topical BID Qty: 60 RF: 4 nystatin 100,000 unit/gram cream 1 applic topical BID Qty: 30 RF: 0 selenium sulfide 2.5 % lotion See Rx Instructions Topical Q48 H PRN (Reason: rash) Qty: 120 RF: 10 amlodipine 10 mg tablet 10 mg PO DAILY Qty: 90 RF: 4 ascorbic acid (vitamin C) 1,000 MG tablet 1,000 mg PO DAILY RF: 0 ibuprofen [Motrin IB] 200 MG tablet 2 tab PO QID PRNRF: 0 vitamin B complex [B Complete] 1 EACH tablet 1 ea PO DAILY RF: 0 glucosam-chond ei-pmhzgp-fo ac 1 EACH capsule 2 cap PO DAILY RF: 0 BERBERIS 1 cap PO DAILY RF: 0 Curcumin 1 GM powder 1 cap Miscellaneous DAILY RF: 0 cholecalciferol (vitamin D3) [Vitamin D3] 2,000 UNIT capsule 2,000 unit PO BID RF: 0 cod liver oil (bulk) 1 ML oil 1 tsp Miscellaneous DAILY RF: 0 resveratrol 50 MG capsule 50 mg PO DAILY RF: 0 cephalexin 500 mg capsule 500 mg PO TID Qty: 21 RF: 0 Discharge Instructions Additional Instructions: Apply bacitracin to area twice daily for [address] Pagan's office for a follow-up appointment time for wound check. Follow-up with [facility] urology as planned. Return to the ER for any acute concerns. Medical Decision Making 84-year-old male presents with concern for erythema surrounding 3 surgical incisions following removal of 3 cysts from his back by Dr. Pagan. P atient not had a fever, chills. He has had some atypical perineal edema, which she states is unchanged and for which she has been seen in urology clinic and has follow-up at [facility]. The 3 surgical incisions on his back show periincisional hyperemia, but no evidence of cellulitis, no fluctuance, no drainage. Will place him on bacitracin ointment for 3 days. No indication for systemic antibiotics at this time. He stable for discharge to home. HPI General Mode of arrival: ambulatory . Date/Time Provider Initiated Documentation: 10/07/20 12:17 . Limitations to Documentation: no limitations . Information obtained by: patient . History of Present Illness 84 year old M presents to the emergency department with the chief complaint of Wound check, described as mild, and is localized to the back. Patient reports no radiation. No relieving factors improve symptom(s), No exacerbating factors reported . Patient notes denies fever/chills. Patient did receive the following treatments prior to arrival, none Related Data Home Medications Medication Instructions Recorded Confirmed Berberis 1 cap PO DAILY 09/17/12 10/07/20 ascorbic acid (vitamin C) 1,000 mg PO DAILY 09/17/12 10/07/20 glucosam-chond fv-paualr-ko ac 2 cap PO DAILY 09/17/12 10/07/20 ibuprofen [Motrin IB] 2 tab PO QID PRN 09/17/12 10/07/20 vitamin B complex [B Complete] 1 ea PO DAILY 09/17/12 10/07/20 Curcumin 1 cap MISCELLANEOUS DAILY 09/20/12 10/07/20 cholecalciferol (vitamin D3) 2,000 unit PO BID 11/16/14 10/07/20 [Vitamin D3] cod liver oil (bulk) 1 tsp MISCELLANEOUS DAILY 12/17/15 10/07/20 resveratrol 50 mg PO DAILY 12/17/15 10/07/20 selenium sulfide 2.5 % lotion See Rx Instructions TOPICAL Q48 H 08/29/19 10/07/20 PRN #120 ml amlodipine 10 mg tablet 10 mg PO DAILY #90 tab 06/18/20 10/07/20 nystatin 100,000 unit/gram topical 1 applic TOPICAL BID #30 g 09/27/20 10/07/20 cream nystatin 100,000 unit/gram topical 1 applic TOPICAL BID #60 g 09/27/20 10/07/20 powder cephalexin 500 mg capsule 500 mg PO TID #21 cap 10/03/20 10/07/20 Previous Rx's Medication Instructions Recorded selenium sulfide 2.5 % lotion See Rx Instructions TOPICAL Q48 H 08/29/19 PRN #120 ml amlodipine 10 mg tablet 10 mg PO DAILY #90 tab 06/18/20 nystatin 100,000 unit/gram topical 1 applic TOPICAL BID #30 g 09/27/20 cream nystatin 100,000 unit/gram topical 1 applic TOPICAL BID #60 g 09/27/20 powder cephalexin 500 mg capsule 500 mg PO TID #21 cap 10/03/20 Allergies Allergy/AdvReac Type Severity Reaction Status Date / Time terazosin HCl [From Hytrin] AdvReac Severe orthostatic Verified 10/07/20 12:23 hypotension General Stated Complaint: RashLesion SONDRA: 4 Review of Systems Narrative: No fever, chills. Has had some perineal edema for which she has follow-up in the urology clinic. 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 of infx cyst (Karin) prostatic stones; S/P surgery Urinary urgency Surgical History CARDIAC CATH LEFT Colonoscopy - MAC 2003;tubular adenoma History of prostate surgery History of surgical procedure PROSTATE REPAIR calcification w/ residual infx-surgery Prostatectomy Repair of inguinal hernia RIGHT Right index finger Excision of mucous cyst Status post inguinal hernia repair Family History Mother , 80'S Diabetes Failure to thrive Father , 80'S Stroke X 2 Asthma Sister Rheumatoid arthritis Sister , 60 Personal history of malignant neoplasm COLON Grandfather Stroke Grandfather Personal history of malignant neoplasm COLON Grandmother Personal history of malignant neoplasm BREAST Social History (Updated 08/30/20 @ 15:26 by Rhea Urbina Smoking/Tobacco Use Status: Never Second Hand Exposure: Yes Smoking risk assessment performed?: Yes Alcohol Intake: current Alcohol Intake frequency: 3 or more drinks per day Alcohol type: wine Drug use: Daily Substance use type: marijuana Do you feel safe at home: Yes Do you feel safe in your relationship?: Yes Exam Narrative Exam Narrative: GEN: awake, alert, oriented 3. Pleasant, well groomed, interactive. HEAD: Normocephalic, atraumatic ENT: Mucous membranes moist, oropharynx unremarkable, External ear exam unremarkable EYES: PERRL, EOMI NECK: Full ROM, no DANII, no menigismus Perineum: Mild edema of penis and scrotum. Unchanged per patient Back: 3 approximately 2 inch surgical incisions with surrounding hyperemia. No fluctuance, no cellulitic changes ABDOMEN: Soft, nontender, no mass. +Bowel sounds EXT: Full ROM, no edema, no rash Neuro: Grossly normal neurologic exam, conversant, interactive. Psych: Speech fluent, thoughts congruent, affect normal Course Vital Signs Vital signs: Vital Signs Temperature 36.2 C L 10/07/20 12:20 Pulse 58 L 10/07/20 12:20 Respiratory Rate 16 10/07/20 12:20 Blood Pressure 134/67 10/07/20 12:20 Pulse Oximetry 100 10/07/20 12:20 Temperature 36.2 C L 10/07/20 12:20 Temperature Source Skin 10/07/20 12:20 Pulse 58 L 10/07/20 12:20 Respiratory Rate 16 10/07/20 12:20 Respiratory Effort 10/07/20 12:26 Blood Pressure 134/67 10/07/20 12:20 Blood Pressure Position Sitting 10/07/20 12:20 Pulse Oximetry 100 10/07/20 12:20 Pain Level 0 10/07/20 12:20
--- NOTE | 2020-10-07 12:34 | NUR.NOTE ---
Bacitracin to wounds. pt declined dressings.
== END 2020-10-07 12:41 | disposition home or self-care (01) ==
PROVIDERS: Emergency Provider Emergency Medicine; PCP Family Medicine
DX: L53.8 Other specified erythematous conditions (principal); L76.82 Other postprocedural complications of skin and subcutaneous tissue
CPT/HCPCS: 99282; 99283

== ENCOUNTER 2020-10-15 12:01 | Emergency (ER) | payer MEDICARE, SELFPAY ==
[2020-10-15 12:04] VITALS: BP 138/72; PULSE 60; RESP 18; TEMP 36.5; O2SAT 97
--- NOTE | 2020-10-15 12:06 | ED.GENADUL_ITS ---
Discharge Plan Disposition Patient Disposition: HOME Condition: Stable Discharge Details Clinical Impression: Visit for suture removal Primary Care Provider: Arianne Tesfaye ED Provider: Wellington Wang Home Meds and New Rx's Prescriptions: Continued nystatin 100,000 unit/gram powder 1 applic topical BID Qty: 60 RF: 4 nystatin 100,000 unit/gram cream 1 applic topical BID Qty: 30 RF: 0 selenium sulfide 2.5 % lotion See Rx Instructions Topical Q48 H PRN (Reason: rash) Qty: 120 RF: 10 amlodipine 10 mg tablet 10 mg PO DAILY Qty: 90 RF: 4 ascorbic acid (vitamin C) 1,000 MG tablet 1,000 mg PO DAILY RF: 0 ibuprofen [Motrin IB] 200 MG tablet 2 tab PO QID PRNRF: 0 vitamin B complex [B Complete] 1 EACH tablet 1 ea PO DAILY RF: 0 glucosam-chond nf-murelw-vg ac 1 EACH capsule 2 cap PO DAILY RF: 0 BERBERIS 1 cap PO DAILY RF: 0 Curcumin 1 GM powder 1 cap Miscellaneous DAILY RF: 0 cholecalciferol (vitamin D3) [Vitamin D3] 2,000 UNIT capsule 2,000 unit PO BID RF: 0 cod liver oil (bulk) 1 ML oil 1 tsp Miscellaneous DAILY RF: 0 resveratrol 50 MG capsule 50 mg PO DAILY RF: 0 cephalexin 500 mg capsule 500 mg PO TID Qty: 21 RF: 0 Discharge Instructions Instructions: Stitches Removal (ED) Additional Instructions: Sutures removed without difficulty. Please keep the area clean and dry. Follow the instructions given to you when the cysts were removed in the first place. Please watch for new or worsening symptoms and return to the ER for any concerns. Discharge Data Discharge Date/Time-TO BE ENTERED AT DEPARTURE: 10/15/20 12:37 Medical Decision Making 84-year-old gentleman presents to the ER for evaluation of suture removal. He had 3 cysts removed from his back 2-1/2 weeks ago in [place]. He has no acute concerns or complaints. Denies fever, redness, warmth, pain. There are no signs of secondary infection. The lacerations appear well approximated. It is time for the sutures to removed. Sutures removed without any difficulty. Patient tolerated well. Medical Records Medical records reviewed: Yes I reviewed the patient's medical records. HPI General Mode of arrival: ambulatory . Date/Time Provider Initiated Documentation: 10/15/20 12:06 . Limitations to Documentation: no limitations . Information obtained by: patient . HPI Narrative: This is a 84-year-old gentleman, past history of atrial arrhythmias, BPH, hypertension, presenting to the ER requesting suture removal. He states that 2-1/2 weeks ago he had 3 cyst removed off of his back. He has no concerns or complaints. Denies fever, pain, discharge. Reports that his tetanus is up-to-date. Patient simply requesting that his sutures be removed Related Data Home Medications Medication Instructions Recorded Confirmed Berberis 1 cap PO DAILY 09/17/12 10/07/20 ascorbic acid (vitamin C) 1,000 mg PO DAILY 09/17/12 10/07/20 glucosam-chond yz-ghonkd-zl ac 2 cap PO DAILY 09/17/12 10/07/20 ibuprofen [Motrin IB] 2 tab PO QID PRN 09/17/12 10/07/20 vitamin B complex [B Complete] 1 ea PO DAILY 09/17/12 10/07/20 Curcumin 1 cap MISCELLANEOUS DAILY 09/20/12 10/07/20 cholecalciferol (vitamin D3) 2,000 unit PO BID 11/16/14 10/07/20 [Vitamin D3] cod liver oil (bulk) 1 tsp MISCELLANEOUS DAILY 12/17/15 10/07/20 resveratrol 50 mg PO DAILY 12/17/15 10/07/20 selenium sulfide 2.5 % lotion See Rx Instructions TOPICAL Q48 H 08/29/19 10/07/20 PRN #120 ml amlodipine 10 mg tablet 10 mg PO DAILY #90 tab 06/18/20 10/07/20 nystatin 100,000 unit/gram topical 1 applic TOPICAL BID #30 g 09/27/20 10/07/20 cream nystatin 100,000 unit/gram topical 1 applic TOPICAL BID #60 g 09/27/20 10/07/20 powder cephalexin 500 mg capsule 500 mg PO TID #21 cap 10/03/20 10/07/20 Previous Rx's Medication Instructions Recorded selenium sulfide 2.5 % lotion See Rx Instructions TOPICAL Q48 H 08/29/19 PRN #120 ml amlodipine 10 mg tablet 10 mg PO DAILY #90 tab 06/18/20 nystatin 100,000 unit/gram topical 1 applic TOPICAL BID #30 g 09/27/20 cream nystatin 100,000 unit/gram topical 1 applic TOPICAL BID #60 g 09/27/20 powder cephalexin 500 mg capsule 500 mg PO TID #21 cap 10/03/20 Allergies Allergy/AdvReac Type Severity Reaction Status Date / Time terazosin HCl [From Hytrin] AdvReac Severe orthostatic Verified 10/09/20 13:22 hypotension General SONDRA: 4 Review of Systems Constitutional Constitutional: Denies fever(s) Cardiovascular Cardiovascular: Denies chest pain and Denies dyspnea Respiratory Respiratory: Denies dyspnea Musculoskeletal Musculoskeletal: Denies back pain Integumentary/Breasts Skin/Breast: Denies erythema PFSH Medical History Abnormal visual perception (09/11/15) Atrial arrhythmia 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 of infx cyst (Karin) prostatic stones; S/P surgery Urinary urgency Surgical History CARDIAC CATH LEFT Colonoscopy - [facility] 2003;tubular adenoma History of prostate surgery History of surgical procedure PROSTATE REPAIR calcification w/ residual infx-surgery Prostatectomy Repair of inguinal hernia RIGHT Right index finger Excision of mucous cyst Status post inguinal hernia repair Family History Mother , 80'S Diabetes Failure to thrive Father , 80'S Stroke X 2 Asthma Sister Rheumatoid arthritis Sister , 60 Personal history of malignant neoplasm COLON Grandfather Stroke Grandfather Personal history of malignant neoplasm COLON Grandmother Personal history of malignant neoplasm BREAST Social History Smoking/Tobacco Use Status: Never Second Hand Exposure: Yes Smoking risk assessment performed?: Yes Alcohol Intake: current Alcohol Intake frequency: 3 or more drinks per day Alcohol type: wine Drug use: Daily Substance use type: marijuana Do you feel safe at home: Yes Do you feel safe in your relationship?: Yes Exam Const General: cooperative, healthy appearing, comfortable and no acute distress Orientation: alert and awake [facility] Head: normal to inspection, normocephalic and atraumatic Eyes General: appearance normal, both eyes and all related structures Conjunctivae: conjunctivae normal Neck Neck: normal visual inspection, trachea midline and supple Resp Effort & Inspection: normal respiratory effort and able to speak in complete sentences Cardio Rate: regular rate Rhythm: regular rhythm Back/Spine/Pelvis Back: no CVA tenderness and No back tenderness Other: Patient has 3 separate well-healing and appearing sutured lacerations. There is no erythema, warmth, discomfort. No induration, fluctuance, drainage. No signs of secondary infection. Skin General skin exam: no rashes or lesions noted Neuro General: patient alert, patient awake, moves all extremities and no focal motor deficits Cognition: normal cognition Speech: speech normal Gait: normal gait Sensory Exam: no sensory deficits noted Psych Appearance: grossly normal Mental Status: mental status grossly normal
== END 2020-10-15 12:37 | disposition home or self-care (01) ==
PROVIDERS: Emergency Provider Physician Assistant; PCP Family Medicine
DX: Z48.817 Encounter for surgical aftercare following surgery on the skin and subcutaneous tissue (principal); Z48.02 Encounter for removal of sutures
CPT/HCPCS: 99281

== ENCOUNTER 2020-10-23 11:04 | Emergency (ER) | payer MEDICARE, SELFPAY ==
[2020-10-23 11:11] VITALS: BP 119/85; PULSE 55; TEMP 36.6; O2SAT 98
--- NOTE | 2020-10-23 11:24 | ED.GENADUL_ITS ---
Discharge Plan Disposition Patient Disposition: HOME Condition: Stable Discharge Details Clinical Impression: Encounter for wound re-check, H/O removal of cyst Primary Care Provider: Arianne Tesfaye ED Provider: Laura David Home Meds and New Rx's Prescriptions: Continued nystatin 100,000 unit/gram powder 1 applic topical BID Qty: 60 RF: 4 cephalexin 500 mg capsule 500 mg PO QID Qty: 28 RF: 1 selenium sulfide 2.5 % lotion See Rx Instructions Topical Q48 H PRN (Reason: rash) Qty: 120 RF: 10 amlodipine 10 mg tablet 10 mg PO DAILY Qty: 90 RF: 4 ascorbic acid (vitamin C) 1,000 MG tablet 1,000 mg PO DAILY RF: 0 ibuprofen [Motrin IB] 200 MG tablet 2 tab PO QID PRNRF: 0 vitamin B complex [B Complete] 1 EACH tablet 1 ea PO DAILY RF: 0 glucosam-chond nm-imcsdl-me ac 1 EACH capsule 2 cap PO DAILY RF: 0 BERBERIS 1 cap PO DAILY RF: 0 Curcumin 1 GM powder 1 cap Miscellaneous DAILY RF: 0 cholecalciferol (vitamin D3) [Vitamin D3] 2,000 UNIT capsule 2,000 unit PO BID RF: 0 cod liver oil (bulk) 1 ML oil 1 tsp Miscellaneous DAILY RF: 0 resveratrol 50 MG capsule 50 mg PO DAILY RF: 0 Discharge Instructions Instructions: Acute Wound Care (ED) Additional Instructions: Keep the dressing in place until follow-up with Dr. Pagan tomorrow. Follow-up with Dr. Pagan in the [facility] clinic at the [facility] tomorrow at 2:15 PM. Continue your Keflex as directed until finished. Return immediately to the emergency department if you develop any worsening or new concerning symptoms. Discharge Data Discharge Date/Time-TO BE ENTERED AT DEPARTURE: 10/23/20 12:53 Discharge Physician: Laura David Medical Decision Making 85-year-old male with a history of removal of 3 sebaceous cyst to his back [address] Pagan ENT presents for wound check after concern for opening of a wound. Patient was seen here on 10/15/2020 for suture removal at the cyst excision sites. Patient had 3 sutures removed at that time and there was no evidence of infection noted. Incidentally, patient is currently on Keflex for a pelvic and groin cellulitis which is being monitored by Dr. Tesfaye and urology. Patient is hemodynamically stable. He appears nontoxic. He has 3 wounds noted to his back. The most superior wound has an opening that is 1 x 2 cm. There is yellow tissue within the wound and healing pink granulation tissue external to the wound. There is no fluctuation, induration or drainage and this wound does not appear acutely infected. The other 2 wounds on the back are closing with yellow crusted erosion in center and pink granulation tissue around edges and they do not appear acutely infected. Discussed with patient at length regarding his reason for not following up with Dr. Pagan post his cystectomies for suture removal. Patient states he was unaware of the need to follow-up with Dr. Pagan after the cyst excision and thought he should come to the ER for suture removal and for wound check today. At this point in time, I think patient's wound can be packed with wet-to-dry dressing and I do not see an indication to add any other antibiotic regimen she was Keflex for his other condition of pelvic cellulitis. I called nursing specialty plant supervisor to see if wound care can evaluate patient at bedside but their schedule is full and may not be possible in a timely manner. Case discussed with Anibal Isabel who is covering for ENT --an appointment has been made for patient tomorrow with Dr. Pagan at the [facility] clinic in the [facility] at 2:15 PM for evaluation. A wet-to-dry dressing was placed here in the ED and patient was advised to follow-up with Dr. Pagan tomorrow afternoon. Usual and customary return precautions given prior to discharge. Medical Records Medical records reviewed: Yes I reviewed the patient's medical records. HPI General Mode of arrival: ambulatory . Date/Time Provider Initiated Documentation: 10/23/20 11:23 . Limitations to Documentation: no limitations . Information obtained by: patient . HPI Narrative: Pt is an 85yo M who is lora roximately 3 weeks s/p cyst removal x 3 on his back by ENT Dr. Pagan who presents for concern of one of the cyst sites opening after suture removal here last week. Pt came to the ED last week for suture removal at the cyst sites. Pt states he did not call Dr. Pagan's office regarding this suture removal or for follow up and states he was unaware of instructions or [facility] follow [facility] these [facility]. Pt states he is currently on keflex for a pelvic cellulitis that is being followed by Dr. Tesfaye. He denies fever, chills, chest pain, sob or abdominal pain. Related Data Home Medications Medication Instructions Recorded Confirmed Berberis 1 cap PO DAILY 09/17/12 10/23/20 ascorbic acid (vitamin C) 1,000 mg PO DAILY 09/17/12 10/23/20 glucosam-chond tl-dyparc-cq ac 2 cap PO DAILY 09/17/12 10/23/20 ibuprofen [Motrin IB] 2 tab PO QID PRN 09/17/12 10/23/20 vitamin B complex [B Complete] 1 ea PO DAILY 09/17/12 10/23/20 Curcumin 1 cap MISCELLANEOUS DAILY 09/20/12 10/23/20 cholecalciferol (vitamin D3) 2,000 unit PO BID 11/16/14 10/23/20 [Vitamin D3] cod liver oil (bulk) 1 tsp MISCELLANEOUS DAILY 12/17/15 10/23/20 resveratrol 50 mg PO DAILY 12/17/15 10/23/20 selenium sulfide 2.5 % lotion See Rx Instructions TOPICAL Q48 H 08/29/19 10/23/20 PRN #120 ml amlodipine 10 mg tablet 10 mg PO DAILY #90 tab 06/18/20 10/23/20 nystatin 100,000 unit/gram topical 1 applic TOPICAL BID #60 g 09/27/20 10/23/20 powder cephalexin 500 mg capsule 500 mg PO QID #28 cap 10/18/20 10/23/20 Previous Rx's Medication Instructions Recorded selenium sulfide 2.5 % lotion See Rx Instructions TOPICAL Q48 H 08/29/19 PRN #120 ml amlodipine 10 mg tablet 10 mg PO DAILY #90 tab 06/18/20 nystatin 100,000 unit/gram topical 1 applic TOPICAL BID #60 g 09/27/20 powder cephalexin 500 mg capsule 500 mg PO QID #28 cap 10/18/20 Allergies Allergy/AdvReac Type Severity Reaction Status Date / Time terazosin HCl [From Hytrin] AdvReac Severe orthostatic Verified 10/23/20 11:21 hypotension General Stated Complaint: Recheck SONDRA: 4 Review of Systems All systems reviewed & are unremarkable except as noted in HPI and below Constitutional Constitutional: Reports as per HPI, Denies chills and Denies fever(s) Eyes Eyes: Denies blurry vision ENT Ears, Nose, Mouth, and Throat: Denies dizziness, Denies sore throat and Denies throat swelling Cardiovascular Cardiovascular: Denies chest pain and Denies dyspnea Respiratory Respiratory: Denies cough and Denies dyspnea Gastrointestinal Gastrointestinal: Denies abdominal pain, Denies diarrhea and Denies vomiting Genitourinary Genitourinary: Denies hematuria and Denies dysuria Musculoskeletal Musculoskeletal: Denies back pain and Denies numbness Integumentary/Breasts Skin/Breast: Reports lesions and Denies rash Neurologic Neurologic: Denies dizziness, Denies localized weakness and Denies numbness Allergic/Immunologic Allergic/Immunologic: Denies throat swelling [facility] Medical History Abnormal visual perception (09/11/15) Atrial arrhythmia 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 of infx cyst (Karin) prostatic stones; S/P surgery Urinary urgency Surgical History CARDIAC CATH LEFT Colonoscopy - MAC 2003;tubular adenoma History of prostate surgery History of surgical procedure PROSTATE REPAIR calcification w/ residual infx-surgery Prostatectomy Repair of inguinal hernia RIGHT Right index finger Excision of mucous cyst Status post inguinal hernia repair Family History Mother , 80'S Diabetes Failure to thrive Father , 80'S Stroke X 2 Asthma Sister Rheumatoid arthritis Sister , 60 Personal history of malignant neoplasm COLON Grandfather Stroke Grandfather Personal history of malignant neoplasm COLON Grandmother Personal history of malignant neoplasm BREAST Social History Smoking/Tobacco Use Status: Never Second Hand Exposure: Yes Smoking risk assessment performed?: Yes Alcohol Intake: current Alcohol Intake frequency: 3 or more drinks per day Alcohol type: wine Drug use: Daily Substance use type: marijuana Do you feel safe at home: Yes Do you feel safe in your relationship?: Yes Exam Const General: cooperative, healthy appearing and no acute distress HENMT Head: normal to inspection Mouth: oral mucosae normal Eyes General: appearance normal, both eyes and all related structures Neck Neck: normal visual inspection Resp Effort & Inspection: normal respiratory effort and able to speak in complete sentences Cardio Rate: regular rate Skin General skin exam: no rashes or lesions noted Neuro General: patient alert, patient awake and patient oriented x3 Motor: muscle tone normal throughout Extrem Shoulder/upper arm images: 1. 2 x 1 cm open wound with thickened yellow tissue on the inner edges but no active pus drainage. There is healing pink granulation tissue on the exterior edges of wound. There is no tenderness to palpation. There is no induration or fluctuance. Psych Appearance: grossly normal Affect: normal affect Course Vital Signs Vital signs: Vital Signs Temperature 97.9 F 10/23/20 11:11 Pulse 55 L 10/23/20 11:11 Blood Pressure 119/85 10/23/20 11:11 Pulse Oximetry 98 10/23/20 11:11 Temperature 97.9 F 10/23/20 11:11 Temperature Source Temporal Artery Scan 10/23/20 11:11 Pulse 55 L 10/23/20 11:11 Respiratory Effort Non-Labored 10/23/20 11:16 Blood Pressure 119/85 10/23/20 11:11 Blood Pressure Position Sitting 10/23/20 11:11 Pulse Oximetry 98 10/23/20 11:11 Oxygen Delivery Method Room Air 10/23/20 11:11 Oxygen Flow Rate 0 10/23/20 11:11 Pain Level 0 10/23/20 11:11
== END 2020-10-23 12:53 | disposition home or self-care (01) ==
PROVIDERS: Emergency Provider Physician Assistant; PCP Family Medicine
DX: T81.31XA Disruption of external operation (surgical) wound, not elsewhere classified, initial encounter (principal); Y83.8 Other surgical procedures as the cause of abnormal reaction of the patient, or of later complication, without mention of misadventure at the time of the procedure
CPT/HCPCS: 99282; 87070; 87205

== ENCOUNTER 2020-12-20 08:34 | Outpatient (REF) | payer MEDICARE, SELFPAY ==
[2020-12-20 21:33] LABS: Bilirubin Negative (Negative); Blood Negative (Negative); Clarity Sl Cloudy (Clear); Glucose Negative (Negative); Ketones 15 mg/dL (Negative); Leukocyte Esterase Negative (Negative); Nitrite Negative (Negative); Specific Gravity 1.025 (1.005-1.025); Urobilinogen 0.2 EU/dL (Up TO 0.2); pH 6.5 (5-8)
[2020-12-20 22:36] LABS: Bacteria Negative HPF (Negative); C & S Indicated? No; Casts 0-2 Hyaline LPF (Negative); Crystals Negative HPF (Negative); Epithelial Cells Negative HPF (Negative); Mucus Moderate (Negative); Other Cells Negative (Negative); RBC Negative HPF (0-2); WBC Negative HPF (0-5)
== END 2020-12-21 13:01 | disposition home or self-care (01) ==
LOC: LBN 08:34
PROVIDERS: PCP Family Medicine; Visit Provider Family Medicine
DX: R82.998 Other abnormal findings in urine (principal); R10.2 Pelvic and perineal pain
CPT/HCPCS: 81003; 81015

== ENCOUNTER 2021-01-01 01:37 | Outpatient (CLI) | payer MEDICARE, SELFPAY ==
--- NOTE | 2021-01-01 07:45 | DI.US_ITS ---
APPROVED REPORT EXAM: Comprehensive 2D, Doppler, and color-flow Echocardiogram Patient Location: Out-Patient Termite Exterminator Helper: Celestina Heller RDCS (AE) Rhythm: Bradycardia Indications: Edema Other Information Study Quality: Adequate Conclusion Left Ventricle : The left ventricle is normal size. The left ventricular systolic function is normal. The left ventricular ejection fraction is within the normal range. There is normal left ventricular wall thickness. There is normal LV segmental wall motion. The left ventricular diastolic function is normal. LVEF is 60%. Right Ventricle : The right ventricle is normal size. The right ventricular systolic function is norm al. The RVSP is 20.3 mmHg. Atria : The left atrium size is normal. The right atrium size is normal. Mitral Valve : The mitral valve is normal in structure. Trace to mild mitral regurgitation. No eviden ce of mitral valve stenosis. Tricuspid Valve : The tricuspid valve is normal in structure. Mild to moderate tricuspid regurgitatio n. There is no tricuspid valve stenosis. Great Vessels : The aortic root is normal in size. The ascending aorta is mildly dilated (3.9cm). Aor tic arch is not well visualized. IVC is normal in size and collapses >50% with inspiration. Wall motion Left Ventricle The left ventricle is normal size. The left ventricular systolic function is normal. The left ventric ular ejection fraction is within the normal range. There is normal left ventricular wall thickness. T here is normal LV segmental wall motion. The left ventricular diastolic function is normal. There is no ventricular septal defect visualized. LVEF is 60%. Right Ventricle The right ventricle is normal size. The right ventricular systolic function is normal. The RVSP is 20 .3 mmHg. Atria The left atrium size is normal. The right atrium size is normal. The interatrial septum is intact wit h no evidence for an atrial septal defect. Aortic Valve The aortic valve is normal in structure. Aortic valve is trileaflet. There is no aortic valvular sten osis. No aortic regurgitation is present. Mitral Valve The mitral valve is normal in structure. No evidence of mitral valve stenosis. Trace to mild mitral r egurgitation. Tricuspid Valve The tricuspid valve is normal in structure. There is no tricuspid valve stenosis. Mild to moderate tr icuspid regurgitation. Pulmonic Valve The pulmonary valve is normal in structure. There is no pulmonic valvular stenosis. Trace pulmonic re gurgitation. Great Vessels The aortic root is normal in size. The ascending aorta is mildly dilated (3.9cm). Aortic arch is not well visualized. IVC is normal in size and collapses >50% with inspiration. Pericardium There is no pericardial effusion. 2D Dimensions IVSD d PLAX 0.93 cm M: 0.6-1.2 LV Vol A2C d MOD 105.1 mL LVPW d PLAX 0.92 cm M: 0.6 - 1.2 LV Vol A4C d MOD 97.0 mL LVID d PLAX 4.54 cm M: 4.2 - 5.8 LA vol/ BSA A2C s A-L 22.3 mL/m2 LVDs 3.10 cm M: 2.5 - 4.0 LA vol/ BSA A4C s A-L 18.5 mL/m2 Ao Root d 3.57 cm M: 3.1 - 3.7 LA Vol/ BSA Biplane s A-L 20.8 mL/m2 RA Area A4C 13.34 cm2 LA Area A4C s MOD 13.71 cm2 RA Vol/ BSA A4C s A-L 19.2 mL/m2 LA Area A2C s MOD 14.71 cm2 Ao Asc Diam d 3.89 cm M: 2.6 - 3.4 LV EF A4C MOD 60.9 % LV EF Teichholz 58.9 % LV EF A2C MOD 59.5 % LVEF (Benedict's) 58.43 % M: 52 - 72 LV EF Biplane MOD 58.4 % LV Volume 79.31 mL M: 62 - 150 SV 59.28 mL LV Volume Index 44.80 mL/m2 M: 34 - 74 SV Index 33.40 mL/m2 LV Vol Biplane MOD 101.5 mL FS 31.05 % M-Mode TAPSE 3.20 cm (M/F) >1.7 LV Diastology MV E' medial 0.384 (>0.07 m/s) E/A Ratio 0.9 LV E/e MED 1.75 (<14) MV E Vmax 0.67 (0.4-1.3 m/s) MV E' lateral 0.093 (>0.1 m/s) MV A Vmax 0.75 (0.4-1.3 m/s) LV E/e LAT 7.20 (<14) MV E/A Ratio 0.85 MV E/E' medial 1.75 MV E/E' lateral 7.24 Aortic Valve LVOT Area 2.95 cm2 AoV Area Vmax 2.41 cm2 LVOT Vmax 0.81 m/s AoV Area/ BSA (Vmax) 1.36 cm2/m2 LVOT Mean Rahat. 0.54 m/s LUPE Mean Rahat. 2.02 cm2 LVOT Peak Grad 2.6 mmHg LUPE Mean Rahat. Index 1.14 cm2/m2 LVOT Mean Grad 1.4 mmHg LVOT VTI 0.186 m LVOT Diam s 1.90 cm AoV Vmax 0.99 m/s Velocity Ratio 0.81 AoV Mean Rahat. 0.79 m/s AoV Peak Grad 3.9 mmHg LVOT SV 54.90 mL AoV Mean Grad 2.6 mmHg AoV VTI 0.246 m AoV Area VTI 2.23 cm2 AoV Area/ BSA (VTI) 1.26 cm/m2 Mitral Valve MV DT 361 (160-240 msec) MV PHT 105 msec MV Area PHT 2.10 cm2 MV VTI 0.339 m MV Area VTI 1.62 (4.0-6.0 cm2) Pulmonary Valve PV Vmax 0.83 (0.5-1.5 m/s) RVOT Peak Gr. 1.74 mmHg PV Peak Grad 2.8 mmHg RVOT Mean Gr. 0.90 mmHg PV Mean Grad 1.3 mmHg RVOT VTI 0.160 m PV VTI 0.189 m RVOT Vmax 0.66 m/s Tricuspid Valve TR Peak Grad 17.3 mmHg TR Vmax 2.08 m/s RA Pressure 3.00 mmHg RVSP (TR) 20.3 mmHg
== END 2021-01-01 01:57 ==
PROVIDERS: PCP Family Medicine; Visit Provider Family Medicine
DX: R60.9 Edema, unspecified (principal); R00.1 Bradycardia, unspecified; I36.1 Nonrheumatic tricuspid (valve) insufficiency; I77.810 Thoracic aortic ectasia
CPT/HCPCS: 93306

== ENCOUNTER 2021-05-10 03:43 | Outpatient (CLI) | payer MEDICARE, SELFPAY ==
[2021-05-10 17:46] LABS: PSA, Diagnostic 0.3 ng/mL (0.0-6.5)
== END 2021-05-10 03:44 | disposition home or self-care (01) ==
LOC: LBO 03:43
PROVIDERS: Urology; PCP Family Medicine; Visit Provider Nurse Practitioner Gerontology
DX: C61 Malignant neoplasm of prostate (principal)
CPT/HCPCS: 36415; 84153

== ENCOUNTER → 2021-05-17 11:35 | Outpatient (BNVA) | payer MEDICARE, SELFPAY | PROVIDERS: PCP Family Medicine; Referring Provider Family Medicine; Visit Provider Urology | DX: C61 Malignant neoplasm of prostate (principal); Z98.890 Other specified postprocedural states | CPT/HCPCS: 99213 ==

== ENCOUNTER 2021-11-13 01:49 | Outpatient (CLI) | payer MEDICARE, SELFPAY ==
[2021-11-13 17:51] LABS: PSA, Diagnostic 0.3 ng/mL (<=6.5)
== END 2021-11-13 01:50 | disposition home or self-care (01) ==
PROVIDERS: PCP Family Medicine; Visit Provider Urology
DX: C61 Malignant neoplasm of prostate (principal)
CPT/HCPCS: 36415; 84153

== ENCOUNTER → 2021-11-22 10:33 | Outpatient (BNVA) | payer MEDICARE, SELFPAY | PROVIDERS: PCP Family Medicine; Referring Provider Family Medicine; Visit Provider Urology | DX: C61 Malignant neoplasm of prostate (principal); N40.0 Benign prostatic hyperplasia without lower urinary tract symptoms | CPT/HCPCS: 99213 ==

== ENCOUNTER 2022-02-24 14:30 | Emergency (ER) | payer MEDICARE, SELFPAY ==
[2022-02-24 14:38] VITALS: BP 137/81; PULSE 68; RESP 14; TEMP 36.5; O2SAT 98
[2022-02-24 15:29] VITALS: BP 122/75; PULSE 63; RESP 18; O2SAT 96
--- NOTE | 2022-02-24 16:22 | W.ED.GENAD ---
Discharge Plan Disposition Patient Disposition: HOME Condition: Stable Discharge Details Clinical Impression: Essential hypertension Primary Care Provider: Arianne Tesfaye ED Provider: Benjie Knapp Home Meds and New Rx's Prescriptions: Continued selenium sulfide 2.5 % lotion See Rx Instructions Topical Q48 H PRN (Reason: rash) Qty: 120 10RF Rx Instructions: 1 applic topical every 48 hours PRN; ascorbic acid (vitamin C) 1,000 MG tablet 1,000 mg PO DAILY ibuprofen [Motrin IB] 200 MG tablet 2 tab PO QID PRN vitamin B complex [B Complete] 1 EACH tablet 1 ea PO DAILY glucosam-chond mh-qimpjd-ed ac 1 EACH capsule 2 cap PO DAILY Label Comments: 11-10-17 pt reports that he is only taking one tablet daily. hb BERBERIS 1 cap PO DAILY Curcumin 1 GM powder 1 cap Miscellaneous DAILY Label Comments: Prostate [facility] cholecalciferol (vitamin D3) [Vitamin D3] 2,000 UNIT capsule 2,000 unit PO BID cod liver oil (bulk) 1 ML oil 1 tsp Miscellaneous DAILY resveratrol 50 MG capsule 50 mg PO DAILY amlodipine 5 mg tablet 10 mg PO DAILY Discharge Instructions Instructions: Hypertension (ED) Additional Instructions: your vital signs and exam today were normal. follow up with your primary care provider within 1 week return to the emergency department if you feel more ill, have worsening symptoms or chest pain or difficulty breathing Medical Decision Making 86 yo male with hx of htn comes in with complaint of an episode where he felt out of body and lightheaded. This started aroun 1pm while at home and he laid down. He denies feeling any chest pain, headache, dyspnea, abdomen pain, fevers, chills. He states he checked his bp and it was 170 systolic so came here. He does note he takes marijuana frequently and did use just prior to this episode. This episode lasted about an hour and since being here his symptoms have resolved and his vitals are normal. He denies any vision changes, speech changes, weakness. He is caox4 and has no focal motor or sensation deficits, CN II-XI intact, nih of 0, clear lungs, soft abodmen. Unclear etiology of his symptoms, could be related to his marijuana use but given his age and symptoms did recommend doing screening labs, ekg and head ct though my suspicion for TIA is low. He has had to wait a long time prior to being seen and doesn't want to wait for any testing as he feels well. He has capacity to make his own decisions and is willing to accept the risks of leaving if tia or other serious potential etiologies are missed including and permanent disability. He is going to follow up with his pcp rahul and return precautions given Differential Diagnosis Differential Diagnosis: tia, electrolyte abnormality, marijuana side effect, htn HPI General Mode of arrival: ambulatory. Date/Time Provider Initiated Documentation: 02/24/22 14:51. Limitations to Documentation: no limitations. Information obtained by: patient. History of Present Illness 86 year old M presents to the emergency department with the chief complaint of dizziness, described as moderate, Patient started experiencing this hour(s) (3) and it has been now resolved. No relieving factors improve symptom(s), No exacerbating factors reported . Patient notes no other symptoms.. Patient did receive the following treatments prior to arrival, none Related Data Home Medications Medication Instructions Recorded Confirmed Berberis 1 cap PO DAILY 09/17/12 02/24/22 ascorbic acid (vitamin C) 1,000 mg 1,000 mg PO DAILY 09/17/12 02/24/22 tablet epozorvinr-snbbrzjvxt-rnkvizou-hyalur 2 cap PO DAILY 09/17/12 02/24/22 ac 375 mg-300 mg-175 mg-2 mg cap ibuprofen 200 mg tablet (Motrin IB) 2 tab PO QID PRN 09/17/12 02/24/22 vitamin B complex (B Complete 1 ea PO DAILY 09/17/12 02/24/22 tablet) turmeric (bulk) 95 % powder 1 cap miscellaneous DAILY 09/20/12 11/22/21 (Curcumin) cholecalciferol (vitamin D3) 50 2,000 unit PO BID 11/16/14 02/24/22 mcg (2,000 unit) capsule (Vitamin D3) cod liver oil (bulk) 100 % 1 tsp miscellaneous DAILY 12/17/15 02/24/22 resveratrol 50 mg capsule 50 mg PO DAILY 12/17/15 02/24/22 selenium sulfide 2.5 % lotion See Rx Instructions topical Q48 H 08/29/19 11/22/21 PRN rash #120 mL amlodipine 5 mg tablet 10 mg PO DAILY 02/24/22 02/24/22 Previous Rx's Medication Instructions Recorded selenium sulfide 2.5 % lotion See Rx Instructions topical Q48 H 08/29/19 PRN rash #120 mL Allergies Allergy/AdvReac Type Severity Reaction Status Date / Time terazosin HCl [From Hytrin] AdvReac Severe orthostatic Verified 02/24/22 15:33 hypotension General Stated Complaint: [facility] SONDRA: 4 Review of Systems All systems reviewed & are unremarkable except as noted in HPI and below Constitutional Constitutional: Denies chills, Denies fever(s) and Denies weakness Eyes Eyes: Denies loss of vision ENT Ears, Nose, Mouth, and Throat: Denies change in voice Cardiovascular Cardiovascular: Denies chest pain and Denies dyspnea Respiratory Respiratory: Denies cough and Denies dyspnea Gastrointestinal Gastrointestinal: Denies abdominal pain, Denies nausea and Denies vomiting Neurologic Neurologic: Denies loss of vision and Denies weakness PFSH All Active Problems (Updated 02/24/22 @ 16:24 by Benjie Knapp MD) Onychomycosis (Acute) Pelvic pain in male (Acute) DNR (do not resuscitate) (Acute) Physician orders for life-sustaining treatment (POLST) form indicates patient wish for fg-zhw-siintlmxvhz status (Acute) Neck pain (Acute) Herpes zoster (Acute) Essential hypertension (Acute) Grief (Acute) Urinary urgency (Acute) Vitamin D deficiency (Acute 12/06/13) Tubular adenoma (Acute 11/18/07) Prostate cancer (Acute 10/03/14) Polyp of colon (Acute 06/04/07) tubular adenoma Osteopenia (Acute 07/08/13) bone density 2014 Compression fx Herpes (Acute 11/29/13) Hemorrhoids (Acute) Facial basal cell cancer (Acute 06/01/17) Diverticulosis (Acute 05/25/12) Cardiac dysrhythmia, unspecified (Acute 09/16/12) HX of mitral insufficiency and trigeminy Benign prostatic hyperplasia (Acute) HX of recurrent UTI's-prostatic sones; removal of >30 stones Atrial arrhythmia (Acute) mild Age-related nuclear cataract of both eyes (Acute) 10/11/15; [facility] Age-related macular degeneration, dry (Acute) 10/11/15-[facility] Acute bilateral low back pain without sciatica (Acute 12/17/15) Medical History (Updated 02/24/22 @ 16:24 by Benjie Knapp MD) Abnormal visual perception (09/11/15) Atrial arrhythmia 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 of infx cyst (Karin) prostatic stones; S/P surgery Visit for suture removal Visit for wound check Surgical History (Updated 02/11/21 @ 09:16 by Arianne Tesfaye MD, [place]) CARDIAC CATH LEFT Colonoscopy - [facility] 2003;tubular adenoma H/O removal of cyst History of prostate surgery History of surgical procedure PROSTATE REPAIR calcification w/ residual infx-surgery Prostatectomy Repair of inguinal hernia RIGHT Right index finger Excision of mucous cyst Status post inguinal hernia repair Family History Mother , 80'S Diabetes Failure to thrive Father , 80'S Stroke X 2 Asthma Sister Rheumatoid arthritis Sister , 60 Personal history of malignant neoplasm COLON Grandfather Stroke Grandfather Personal history of malignant neoplasm COLON Grandmother Personal history of malignant neoplasm BREAST Social History (Updated 11/18/21 @ 15:46 by Yuliana Morrison) Smoking/Tobacco Use Status: Former Tobacco Use tobacco type: cigarettes Quit Date: 07/06/79 Tobacco: How many years used: 1 Second Hand Exposure: Yes Smoking risk assessment performed?: Yes Alcohol Intake: current Alcohol Intake frequency: a few times a week Alcohol type: wine Drug use: Daily Substance use type: marijuana Pets and animals: Yes Pets and animals: dog(s) Do you think of yourself as: straight/heterosexual What is your relationship status?: living with partner How often do you talk on the phone with friends or family?: twice per week How often do you get together with friends or relatives?: once per week How often do you attend zoroastrianism or taoist services?: 4 or more times per year Do you belong to any clubs or organized social groups?: yes Panel score (0-1 are the most socially isolated patients): 4 What type of physical activity do you participate in: walking Duration: 15-30 minutes/day Frequency: 3-4 times per week Lorraine/Bahai: Denominational Special lorraine needs: Yes (Denominational/Temple) Do you feel safe at home: Yes Do you feel safe in your relationship?: Yes Exam Const General: no acute distress Orientation: alert HENMT Head: normal to inspection Ears: external ears normal General nose exam: external nose normal Mouth: moist mucous membranes Eyes General: appearance normal, both eyes and all related structures Neck Neck: normal visual inspection Resp Effort & Inspection: normal respiratory effort and able to speak in complete sentences Cardio Rate: regular rate Skin General skin exam: no rashes or lesions noted Neuro General: patient alert and patient oriented x3 Extrem General: normal to inspection Psych Mental Status: mental status grossly normal Course Vital Signs Vital signs: Vital Signs Temperature 36.5 C 02/24/22 14:38 Pulse 68 02/24/22 14:38 Respiratory Rate 14 02/24/22 14:38 Blood Pressure 137/81 02/24/22 14:38 Pulse Oximetry 98 02/24/22 14:38 Temperature 36.5 C 02/24/22 14:38 Temperature Source Tympanic 02/24/22 14:38 Pulse 63 02/24/22 15:29 Respiratory Rate 18 02/24/22 15:29 Respiratory Effort Non-Labored 02/24/22 15:30 Respiratory Depth Normal 02/24/22 15:30 Respiratory Pattern Normal 02/24/22 15:30 Blood Pressure 122/75 02/24/22 15:29 Blood Pressure Position Supine 02/24/22 14:38 Pulse Oximetry 96 02/24/22 15:29 Oxygen Delivery Method Room Air 02/24/22 15:29 Oxygen Flow Rate 0 02/24/22 15:29 Pain Level 0 02/24/22 14:38 PAWSS Have you Been Recently Intoxicated or Drunk Within the Last 30 days?: No Have you Ever Experienced Previous Episodes of Alcohol Withdrawal?: No Have you ever Experienced Withdrawal Seizures?: No Have you ever Experienced Delirium Tremens(DT)s?: No Have you ever undergone Alcohol Rehabilitation Treatment (i.e, inpt ot outpatient treatment programs)?: No Have you ever Experienced Blackouts?: No Have you ever Combined Alcohol with other Downers within the last 90 days?: No Have you ever Combined Alcohol with any other Substance of Abuse during the last 90 days?: No Positive Blood Alcohol level on Presentation? [PCS.BAL]: No Evidence of Increased Autonomic Activity (i.e. HR>120, tremor, sweating, agitation, nausea)?: No Result: 0
== END 2022-02-24 16:30 | disposition home or self-care (01) ==
PROVIDERS: Emergency Provider Emergency Medicine; PCP Family Medicine
DX: I10 Essential (primary) hypertension (principal); Z87.891 Personal history of nicotine dependence
CPT/HCPCS: 99281; 99282

== ENCOUNTER 2022-05-16 01:20 | Outpatient (CLI) | payer MEDICARE, SELFPAY ==
[2022-05-16 14:26] LABS: ALT 24 U/L (16-63); AST 21 U/L (15-37); Albumin 3.8 g/dL (3.4-5.0); Alkaline Phosphatase 85 U/L (46-116); Anion Gap 6.3 mmol/L (3-11); BUN 22 mg/dL (7-18); Bilirubin, Total 1.2 mg/dL (0.2-1.0); CO2 28.7 mmol/L (21.0-32.0); Calculated LDL 95 mg/dL (<100); Chloride 105 mmol/L (98-107); Cholesterol 181 mg/dL (<200); Estimated GFR 73.76 (mL/min/1.73m2); Glucose 90 mg/dL (74-106); HDL Cholesterol 65 mg/dL (40-60); Potassium 4.8 mmol/L (3.5-5.1); Sodium 140 mmol/L (136-145); TSH (W/Ref FT4) 1.63 uIU/mL (0.36-3.74); Total Protein 7.6 g/dL (6.4-8.2); Triglyceride 105 mg/dL (<150)
[2022-05-19 09:21] LABS: PSA, Diagnostic 0.5 ng/mL (<=6.5)
== END 2022-05-16 01:21 | disposition home or self-care (01) ==
LOC: LBO 01:20
PROVIDERS: PCP Family Medicine; Visit Provider Urology
DX: N40.0 Benign prostatic hyperplasia without lower urinary tract symptoms (principal); I10 Essential (primary) hypertension; I49.8 Other specified cardiac arrhythmias
CPT/HCPCS: 36415; 80053; 80061; 84153; 84443

== ENCOUNTER → 2022-05-23 10:25 | Outpatient (BNVA) | payer MEDICARE, SELFPAY | PROVIDERS: PCP Family Medicine; Referring Provider Family Medicine; Visit Provider Urology | DX: C61 Malignant neoplasm of prostate (principal) | CPT/HCPCS: 99213 ==

== ENCOUNTER → 2022-06-06 13:45 | Outpatient (BNVA) | payer MEDICARE, SELFPAY | PROVIDERS: PCP Family Medicine; Referring Provider Family Medicine; Visit Provider Internal Medicine Cardiovascular Disease | DX: I49.8 Other specified cardiac arrhythmias (principal); I10 Essential (primary) hypertension | CPT/HCPCS: 93005; 99212; 99214 ==

== ENCOUNTER 2022-06-06 13:56 | Outpatient (CLI) | payer MEDICARE, SELFPAY ==
--- NOTE | 2022-06-06 13:45 | RT.EKG_ITS ---
APPROVED REPORT Exam: Resting ECG Reason for Exam: palpitations Patient Location: O HR:52 bpm ECG Measurements Heart Rate 52 AXIS FL 238 P -70 QRSd 95 QRS -18 QT 422 T 46 QTc 393 Conclusion Sinus or ectopic atrial rhythm...P axis (-45,135) Prolonged FL interval...FL >220, V-rate 50- 90 Otherwise normal
== END 2022-06-06 13:57 | disposition home or self-care (01) ==
LOC: DI.CARD 13:57
PROVIDERS: PCP Family Medicine; Visit Provider Internal Medicine Cardiovascular Disease
DX: I10 Essential (primary) hypertension (principal); I49.9 Cardiac arrhythmia, unspecified
CPT/HCPCS: 93010

== ENCOUNTER 2022-11-07 01:24 | Outpatient (CLI) | payer MEDICARE, SELFPAY ==
[2022-11-10 09:10] LABS: PSA, Diagnostic 0.7 ng/mL (<=6.5)
== END 2022-11-07 01:25 | disposition home or self-care (01) ==
LOC: LBO 01:25
PROVIDERS: PCP Family Medicine; Visit Provider Urology
DX: C61 Malignant neoplasm of prostate (principal)
CPT/HCPCS: 36415; 84153

== ENCOUNTER → 2022-11-14 10:28 | Outpatient (BNVA) | payer MEDICARE, SELFPAY | PROVIDERS: PCP Family Medicine; Visit Provider Urology | DX: C61 Malignant neoplasm of prostate (principal) | CPT/HCPCS: 99213 ==

== ENCOUNTER 2022-12-26 02:19 | Outpatient (CLI) | payer MEDICARE, SELFPAY ==
[2022-12-26 16:07] LABS: ALT 23 U/L (16-63); AST 14 U/L (15-37); Albumin 3.6 g/dL (3.4-5.0); Alkaline Phosphatase 64 U/L (46-116); Anion Gap 11.6 mmol/L (3-11); BUN 19 mg/dL (7-18); Bilirubin, Total 0.9 mg/dL (0.2-1.0); CO2 24.4 mmol/L (21.0-32.0); Calcium 8.6 mg/dL (8.5-10.1); Chloride 107 mmol/L (98-107); Glucose 91 mg/dL (74-106); Potassium 4.6 mmol/L (3.5-5.1); Sodium 143 mmol/L (136-145); Total Protein 7.2 g/dL (6.4-8.2)
== END 2022-12-26 02:20 | disposition home or self-care (01) ==
LOC: LBO 02:20
PROVIDERS: PCP Family Medicine; Visit Provider Family Medicine
DX: I10 Essential (primary) hypertension (principal)
CPT/HCPCS: 36415; 80053

== ENCOUNTER 2023-02-23 04:34 | Outpatient (CLI) | payer MEDICARE, SELFPAY ==
[2023-02-24 09:17] LABS: PSA, Diagnostic 0.6 ng/mL (<=6.5)
== END 2023-02-23 04:35 | disposition home or self-care (01) ==
LOC: LBO 04:34
PROVIDERS: PCP Family Medicine; Visit Provider Urology
DX: C61 Malignant neoplasm of prostate (principal)
CPT/HCPCS: 36415; 84153

== ENCOUNTER → 2023-02-27 09:59 | Outpatient (BNVA) | payer MEDICARE, SELFPAY | PROVIDERS: PCP Family Medicine; Visit Provider Urology | DX: R97.20 Elevated prostate specific antigen [PSA] (principal); C61 Malignant neoplasm of prostate | CPT/HCPCS: 99213 ==

== ENCOUNTER → 2023-04-28 13:28 | Outpatient (BNVA) | payer MEDICARE, SELFPAY | PROVIDERS: PCP Family Medicine; Referring Provider Family Medicine; Visit Provider Nurse Practitioner Gerontology | DX: R10.31 Right lower quadrant pain (principal); Z85.46 Personal history of malignant neoplasm of prostate | CPT/HCPCS: 81003; 87088; 99213 ==

== ENCOUNTER 2023-04-28 16:23 | Outpatient (REF) | payer MEDICARE, SELFPAY | END 2023-04-28 16:24 | disposition home or self-care (01) | LOC: LBN 16:23 | PROVIDERS: PCP Family Medicine; Visit Provider Nurse Practitioner Gerontology | DX: R10.9 Unspecified abdominal pain (principal) | CPT/HCPCS: 87086 ==

== ENCOUNTER → 2023-04-29 00:58 | Outpatient (CLI) | payer MEDICARE, SELFPAY ==
--- NOTE | 2023-04-29 08:15 | DI.US_ITS ---
Exam(s) US RENAL EXAM: US RENAL CLINICAL HISTORY: right flank pain,hx of kidney stones,prostate ca,R10.9. TECHNIQUE: Chen scale, color and spectral Doppler were used. COMPARISON: CT ABD PELVIS WITH CONTRAST from 06/27/[address] PELVIC W from 10/02/2020 FINDINGS: Renal size in cm: Right: 9.6 left: 11.5 Echogenicity: Normal Hydronephrosis: No Cyst or mass: Multiple cysts. No suspicious masses. 5.7 centimeter cyst upper pole right kidney. L argest cyst on the left side at the lower pole measuring 6.4 cm in maximal dimension. Several other smaller cysts in the left kidney. No follow-up recommended. Nephrolithiasis: Questionable 2 millimeter echogenic focus inferior pole right kidney. 5 millimeter stone lower pole left kidney. Bladder:Normal. right ureteral jet visualized. Left ureteral jet not seen. Prevoid vol:42 cc Postvoid vol:Not performed. Patient could not void Prostate not visualized. IMPRESSION: Bilateral nephrolithiasis. No evidence of hydronephrosis. DATA REPOSITORY:
== END ==
PROVIDERS: PCP Family Medicine; Visit Provider Nurse Practitioner Gerontology
DX: R10.9 Unspecified abdominal pain (principal)
CPT/HCPCS: 76770

== ENCOUNTER → 2023-06-12 09:52 | Outpatient (BNVA) | payer MEDICARE, SELFPAY | PROVIDERS: PCP Family Medicine; Visit Provider Urology | DX: C61 Malignant neoplasm of prostate (principal) ==

== ENCOUNTER 2023-06-12 14:37 | Outpatient (CLI) | payer MEDICARE, SELFPAY ==
[2023-06-12 19:59] LABS: PSA, Diagnostic 0.6 ng/mL (<=6.5)
== END 2023-06-12 14:38 | disposition home or self-care (01) ==
LOC: LBO 14:37
PROVIDERS: PCP Family Medicine; Visit Provider Urology
DX: C61 Malignant neoplasm of prostate (principal)
CPT/HCPCS: 36415; 99213; 84153

== ENCOUNTER 2023-09-04 02:48 | Outpatient (CLI) | payer MEDICARE, SELFPAY ==
[2023-09-04 17:57] LABS: PSA, Diagnostic 0.7 ng/mL (<=6.5)
== END 2023-09-04 02:49 | disposition home or self-care (01) ==
LOC: LBO 02:49
PROVIDERS: Urology; PCP Family Medicine; Visit Provider Internal Medicine Cardiovascular Disease
DX: C61 Malignant neoplasm of prostate (principal)
CPT/HCPCS: 36415; 84153

== ENCOUNTER → 2023-09-11 09:53 | Outpatient (BNVA) | payer MEDICARE, SELFPAY | PROVIDERS: PCP Family Medicine; Visit Provider Urology | DX: C61 Malignant neoplasm of prostate (principal) | CPT/HCPCS: 99213 ==

== ENCOUNTER 2024-03-04 01:26 | Outpatient (CLI) | payer MEDICARE, SELFPAY ==
[2024-03-04 19:28] LABS: PSA, Diagnostic 0.8 ng/mL (<=6.5)
== END 2024-03-04 01:27 | disposition home or self-care (01) ==
LOC: LBO 01:26
PROVIDERS: PCP Family Medicine; Visit Provider Urology
DX: C61 Malignant neoplasm of prostate (principal)
CPT/HCPCS: 36415; 84153

== ENCOUNTER → 2024-03-11 09:56 | Outpatient (BNVA) | payer MEDICARE, SELFPAY | PROVIDERS: PCP Family Medicine; Referring Provider Family Medicine; Visit Provider Urology | DX: C61 Malignant neoplasm of prostate (principal) | CPT/HCPCS: 99213 ==

== ENCOUNTER 2024-07-26 10:45 | Outpatient (CLI) | payer MEDICARE, SELFPAY ==
[2024-07-26 13:33] LABS: ALT 21 U/L (16-63); AST 19 U/L (15-37); Albumin 3.5 g/dL (3.4-5.0); Alkaline Phosphatase 85 U/L (46-116); Anion Gap 6.1 mmol/L (3-11); BUN 21 mg/dL (7-18); Bilirubin, Total 0.59 mg/dL (0.2-1.0); CO2 29.9 mmol/L (21.0-32.0); CREATININE 1.1 mg/dL (0.70-1.30); Calcium 9.2 mg/dL (8.5-10.1); Chloride 107 mmol/L (98-107); Estimated GFR 64.97 (mL/min/1.73m2); Glucose 90 mg/dL (74-106); Potassium 4.6 mmol/L (3.5-5.1); Sodium 143 mmol/L (136-145); Total Protein 7.1 g/dL (6.4-8.2); Vitamin B12 489 pg/mL (193-986)
== END 2024-07-26 10:46 | disposition home or self-care (01) ==
LOC: LOS 10:46
PROVIDERS: PCP Family Medicine; Visit Provider Family Medicine
DX: I10 Essential (primary) hypertension (principal); Z23 Encounter for immunization
CPT/HCPCS: 36415; 80053; 82607

== ENCOUNTER 2024-09-09 00:51 | Outpatient (CLI) | payer MEDICARE, SELFPAY ==
[2024-09-09 18:24] LABS: PSA, Diagnostic 0.7 ng/mL (<=6.5)
== END 2024-09-09 00:52 | disposition home or self-care (01) ==
PROVIDERS: PCP Family Medicine; Visit Provider Urology
DX: C61 Malignant neoplasm of prostate (principal)
CPT/HCPCS: 36415; 84153

== ENCOUNTER → 2024-09-16 09:51 | Outpatient (BNVA) | payer MEDICARE, SELFPAY | PROVIDERS: PCP Family Medicine; Visit Provider Urology | DX: C61 Malignant neoplasm of prostate (principal) | CPT/HCPCS: 99213 ==

== ENCOUNTER 2025-01-23 15:29 | Outpatient (REF) | payer MEDICARE, SELFPAY ==
[2025-01-23 19:38] LABS: Glucose Negative (Negative)
== END 2025-01-23 15:30 | disposition home or self-care (01) ==
LOC: LBN 15:29
PROVIDERS: PCP Family Medicine; Visit Provider Urology
DX: R39.15 Urgency of urination (principal)
CPT/HCPCS: 81003

== ENCOUNTER 2025-03-09 12:44 | Outpatient (CLI) | payer MEDICARE, SELFPAY ==
[2025-03-11 01:49] LABS: PSA, Diagnostic 1.0 ng/mL (<=6.5)
== END 2025-03-09 12:45 | disposition home or self-care (01) ==
LOC: LBO 12:44
PROVIDERS: PCP Family Medicine; Visit Provider Urology
DX: C61 Malignant neoplasm of prostate (principal)
CPT/HCPCS: 36415; 84153

== ENCOUNTER → 2025-03-17 10:24 | Outpatient (BNVA) | payer MEDICARE, SELFPAY | PROVIDERS: PCP Family Medicine; Referring Provider Family Medicine; Visit Provider Urology | DX: C61 Malignant neoplasm of prostate (principal) | CPT/HCPCS: 99213 ==

== ENCOUNTER 2025-03-25 09:58 | Emergency (ER) | payer MEDICARE, SELFPAY ==
[2025-03-25] VITALS (11 sets, daily range): BP systolic 129–159; BP diastolic 38–72; PULSE 47–60; RESP 14–18; TEMP 36.9; O2SAT 93–98
--- NOTE | 2025-03-25 10:00 | RT.EKG_ITS ---
APPROVED REPORT Exam: Resting ECG Reason for Exam: Dizziness Patient Location: E HR:58 bpm ECG Measurements Heart Rate 58 AXIS IL 266 P 77 QRSd 95 QRS 4 QT 440 T 61 QTc 434 Conclusion Sinus bradycardia...rate< 60 Prolonged IL interval...IL >220, V-rate 50- 90 No STEMI
--- NOTE | 2025-03-25 10:19 | W.ED.GENAD ---
Discharge Plan Disposition Patient Disposition: Home Discharge Details Clinical Impression: Alcohol withdrawal Primary Care Provider: Arianne Tesfaye ED Provider: Jeremy Wiley Home Meds and New Rx's Prescriptions: Continued multivitamin Tablet 1 tab PO DAILY Qty: 1 0RF acetaminophen 325 mg tablet 650 mg PO BID PRN amlodipine 10 mg tablet 10 mg PO DAILY Qty: 90 4RF losartan 25 mg tablet 25 mg PO DAILY Qty: 90 7RF ascorbic acid (vitamin C) 1,000 MG tablet 1,000 mg PO DAILY glucosam-chond wx-lddejs-vj ac 1 EACH capsule 2 cap PO DAILY Patient Comments: 11-10-17 pt reports that he is only taking one tablet daily. hb cholecalciferol (vitamin D3) [Vitamin D3] 2,000 UNIT capsule 2,000 unit PO BID cod liver oil (bulk) 1 ML oil 1 tsp Miscellaneous DAILY vitamin B complex [B Complete] Tablet 1 tab PO DAILY melatonin 5 mg capsule 5 mg PO HS Qty: 90 4RF Discharge Instructions Instructions: Alcohol withdrawal Additional Instructions: Please follow-up with your primary care provider regarding your visit to the emergency department today. Be sure to discuss results of all test performed here today to include radiology, and laboratory testing as well as results for any pending cultures. Should your symptoms worsen, or if you develop new concerning symptoms, please return immediately emergency department for further evaluation. HPI General Date/Time Provider Initiated Documentation: 03/25/25 10:03. HPI Narrative: MDM/Narrative: Initial Assessment: Generalized weakness without focal neurologic findings. Last known well outside of stroke window at 8 hours prior to arrival. Possible metabolic or infectious etiology. Consider alcohol withdrawal due to recent abstinence. Differential Diagnosis: - Stroke: Unlikely due to absence of focal weakness or neurologic findings. Head CT scan to rule out intracranial abnormalities. - Electrolyte imbalance: Possible. Blood work to investigate. - Pneumonia: Possible. Blood work and urine sample for analysis. - UTI: Possible. Urine sample for analysis. - Alcohol withdrawal: Possible due to recent abstinence. Blood work and potential trial of benzodiazepine if head CT scan normal. - Dehydration: Possible. IV fluids administered. ED Course: - Blood work conducted. - Head CT scan performed. - IV fluids administered. - Urine sample collected. Okay 12 33 Results reviewed, labs are unremarkable CT imaging shows no acute intracranial abnormality, chest x-ray shows no acute cardiopulmonary process. On reassessment patient is responded well to p.o. Valium. I suggest suspect patient symptoms are secondary to acute alcohol withdrawa follow-up with noted netazepide timeframe, reported history. Plan of care discussed with patient and his he would prefer to go home as he does not intend to detox, I plans on having waiting . Return precautions discussed. Family and patient are agreeable. Final Assessment: Generalized weakness potentially due to metabolic or infectious issue, alcohol withdrawal, or dehydration. Blood work, head CT scan, and urine sample obtained. IV fluids administered. Clinical Impression: Generalized weakness, hypertension. Follow-Up: Blood work, head CT scan, and urine sample results pending. This document was created with assistance from [employer]. The patient consented to its use. HPI: The patient, a male with a known history of hypertension, presents with generalized asthenia. The patient reports feeling well until 0200 hours, at which point he began experiencing dysarthria and difficulty ambulating approximately one hour ago. He describes a sensation of overall weakness without associated vertigo, pain, cephalalgia, visual disturbances, paresthesia, pyrexia, rigors, or cough. This is the first occurrence of these symptoms. The patient denies any history of diabetes mellitus, pneumonia, urinary tract infections, myocardial infarctions, or arrhythmias. He recently consulted with Dr. Cates. The patient consumes approximately two glasses of red wine almost nightly, with his last intake occurring 2-3 days prior. He also reports the use of cannabis. Additionally, he notes an unusual sensation of xerostomia. The patient voided prior to arriving at the hospital. His blood pressure typically ranges from 180-190 mmHg. He is currently prescribed amlodipine and losartan, both of which he has taken today. ROS: Negative besides as mentioned above Exam: Vital signs: Reviewed. General Appearance: Alert and oriented. No acute distress. HEENT: NCAT, EOMI, not icteric. External ears normal. No rhinorrhea. Moist mucous membranes. Neck: Supple, full range of motion, no observable masses, No meningeal sign. Respiratory: No Respiratory distress. No tachypnea. Cardiovascular: RRR, no edema. Gastrointestinal: Soft, nondistended, No rebound tenderness. Back: No midline tenderness to palpation or palpable step-offs of the C/T/L spine. Skin: Warm and dry, no rash. Neurological: Patient able to perform various facial and limb movements without focal weakness or tremor. Psychiatric: Appropriate for situation. Rhythm: Sinus bradycardia Rate: 58 BPM [place]: Normal axis Intervals: First degree heart block Other findings: No acute ST segment or T wave changes to suggest acute ischemia. Labs: Laboratory Tests Range/Units 03/25/25 03/25/25 03/25/25 10:25 11:35 11:40 WBC (4.4-10.8) 10^3/uL 6.09 RBC (4.36-5.78) 10^6/uL 4.75 Hgb (13.5-17.5) g/dL 14.8 Hct (40.0-50.0) % 45.1 MCV (80-95) fL 95 MCH (27.0-33.0) pg 31.2 MCHC (32.0-36.0) % 32.8 RDW (11.8-14.1) % 14.3 H Plt Count (130-400) 10^3/uL 262 MPV (8.0-11.0) fL 9.0 Immature Gran % % 0.3 Neutrophils % % 68.0 Lymphocytes % % 19.5 Monocytes % % 9.4 Eosinophils % % 1.8 Basophils % % 1.0 Nucleated RBC % (0.0-0.3) % 0.0 Absolute Neutrophils (1.2-6.7) 10^3/uL 4.14 Absolute Lymphocytes (1.2-3.4) 10^3/uL 1.19 L Absolute Monocytes (0.1-0.8) 10^3/uL 0.57 Absolute Eosinophils (0.0-0.7) 10^3/uL 0.11 Absolute Basophils (0.0-0.2) 10^3/uL 0.06 VBG Lactate (<or=2.0) mmol/L 1.1 Magnesium (1.8-2.4) mg/dL 2.1 Creatine Kinase (39-308) U/L 145 Troponin I (<or=76) ng/L 34 29 TSH (0.36-3.74) uIU/mL 1.23 Urine Color (Yellow) Yellow Urine Clarity (Clear) Clear Urine pH (5-8) 7.5 Ur Specific [place] (1.005-1.025) 1.020 Urine Protein (Neg-Trace) mg/dL Negative Urine Ketones (Negative) mg/dL Negative Urine Blood (Negative) Negative Urine Nitrite (Negative) Negative Urine Bilirubin (Negative) Negative Urine Urobilinogen (Up to 0.2) mg/dL 0.2 Ur Leukocyte Esterase (Negative) Negative Urine Glucose (Negative) mg/dL Negative Radiology: PROCEDURE INFORMATION: Exam: CT Head Without Contrast Exam date and time: 03/25/2025 10:38 AM Age: 89 years old Clinical indication: Other: Weakness/difficulty standing; HX prostate CA TECHNIQUE: Imaging protocol: Computed tomography of the head without contrast. Radiation optimization: All CT scans at this facility use at least one of these dose optimization techniques: automated exposure control; mA and/or kV adjustment per patient size (includes targeted exams where dose is matched to clinical indication); or iterative reconstruction. COMPARISON: CT HEAD WO 06/04/2020 12:59 PM FINDINGS: Brain: Periventricular and subcortical white matter areas of hypoattenuation, likely chronic small vessel ischemic change, demyelination, or gliosis. There is parenchymal atrophy. No intracranial mass, acute hemorrhage, or acute infarction. Cerebral ventricles: No ventriculomegaly. Paranasal sinuses: Visualized sinuses are unremarkable. No fluid levels. Mastoid air cells: Normal as visualized. Bones: Unremarkable. No acute fracture. Soft tissues: Unremarkable. Vasculature: Atherosclerotic vascular disease. IMPRESSION: No acute intracranial abnormality. Thank you for allowing us to participate in the care of your patient. PROCEDURE INFORMATION: Exam: XR Chest Exam date and time: 03/25/2025 10:39 AM Age: 89 years old Clinical indication: Other: Weakness TECHNIQUE: Imaging protocol: Radiologic exam of the chest. Views: 2 views. COMPARISON: CT HEAD CERV SPINE FACIAL WO 04/20/2020 12:35 PM FINDINGS: Lungs: No focal consolidations or pulmonary nodules. No pulmonary edema. Pleural spaces: Normal. Heart/Mediastinum: Normal. Vasculature: Atherosclerotic vascular disease. Bones/joints: Multilevel thoracic spine degenerative disc space narrowing and osteophyte formation. IMPRESSION: No acute cardiopulmonary abnormality. Thank you for allowing us to participate in the care of your patient. Dictated and Authenticated by: Shemar Patterson MD 03/25/2025 11:56 AM Eastern Time ([place] & [place]) Related Data Home Medications ?Medication ?Instructions ?Recorded ?Confirmed ascorbic acid (vitamin C) 1,000 mg 1,000 mg PO DAILY 09/17/12 03/17/25 tablet zcdbkmcmsg-fgcggsuqrl-rrinitzh-hyalur 2 cap PO DAILY 09/17/12 03/17/25 ac 375 mg-300 mg-175 mg-2 mg cap cholecalciferol (vitamin D3) 50 2,000 unit PO BID 11/16/14 03/17/25 mcg (2,000 unit) capsule (Vitamin D3) cod liver oil (bulk) 100 % 1 tsp miscellaneous DAILY 12/17/15 03/17/25 multivitamin 1 tab PO DAILY #1 tab 03/04/22 03/17/25 vitamin B complex (B Complete 1 tab PO DAILY 03/05/22 03/17/25 tablet) melatonin 5 mg capsule 5 mg PO HS #90 caps 11/20/23 03/17/25 acetaminophen 325 mg tablet 650 mg PO BID PRN 07/26/24 03/17/25 amlodipine 10 mg tablet 10 mg PO DAILY #90 tabs 07/26/24 03/17/25 losartan 25 mg tablet 25 mg PO DAILY #90 tabs 07/26/24 03/17/25 Previous Rx's ?Medication ?Instructions ?Recorded multivitamin 1 tab PO DAILY #1 tab 03/04/22 melatonin 5 mg capsule 5 mg PO HS #90 caps 11/20/23 amlodipine 10 mg tablet 10 mg PO DAILY #90 tabs 07/26/24 losartan 25 mg tablet 25 mg PO DAILY #90 tabs 07/26/24 Allergies Allergy/AdvReac Type Severity Reaction Status Date / Time terazosin HCl (From Hytrin) AdvReac Severe orthostatic Verified 03/17/25 10:34 hypotension General Stated Complaint: [facility] SONDRA: 2 Course Vital Signs Vital signs: Vital Signs Pulse 54 L 03/25/25 10:06 Respiratory Rate 16 03/25/25 10:06 Blood Pressure 159/68 H 03/25/25 10:06 Pulse Oximetry 98 03/25/25 10:06 Pulse 54 L 03/25/25 10:06 Respiratory Rate 16 03/25/25 10:06 Blood Pressure 159/68 H 03/25/25 10:06 Blood Pressure Position Sitting 03/25/25 10:06 Pulse Oximetry 98 03/25/25 10:06 Oxygen Delivery Method Room Air 03/25/25 10:06 Oxygen Flow Rate 0 03/25/25 10:06 Pain Level 0 03/25/25 10:06 PFSH All Active Problems (Updated 03/25/25 @ 12:37 by Jeremy Wiley MD) Alcohol withdrawal (Acute) Marijuana use (Acute) Decreased hearing (Acute) Peripheral neuropathy (Acute) Nail dystrophy (Acute) Onychomycosis (Acute) Pelvic pain in male (Acute) DNR (do not resuscitate) (Acute) Physician orders for life-sustaining treatment (POLST) form indicates patient wish for iu-gsi-qmhyqqtnols status (Acute) Neck pain (Acute) Herpes zoster (Acute) Essential hypertension (Acute) Grief (Acute) Urinary urgency (Acute) Vitamin D deficiency (Acute 12/06/13) Tubular adenoma (Acute 11/18/07) Prostate cancer (Acute 10/03/14) Polyp of colon (Acute 06/04/07) tubular adenoma Osteopenia (Acute 07/08/13) bone density 2014 Compression fx Herpes (Acute 11/29/13) Hemorrhoids (Acute) Facial basal cell cancer (Acute 06/01/17) Diverticulosis (Acute 05/25/12) Cardiac dysrhythmia, unspecified (Acute 09/16/12) HX of mitral insufficiency and trigeminy Benign prostatic hyperplasia (Acute) HX of recurrent UTI's-prostatic sones; removal of >30 stones Atrial arrhythmia (Acute) mild Age-related nuclear cataract of both eyes (Acute) 10/11/15; [facility] Age-related macular degeneration, dry (Acute) 10/11/15-[facility] Acute bilateral low back pain without sciatica (Acute 12/17/15) Medical History (Updated 03/25/25 @ 12:37 by Jeremy Wiley MD) Encounter for wound re-check Visit for suture removal Visit for wound check Pelvic cellulitis Lesion of nose Toenail deformity Otalgia Edema Sebaceous cyst Cerumen impaction Inguinal hernia Encounter for screening colonoscopy Current visit- YES Urinary tract infectious disease (06/04/06) frequent UTI's; ? 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 Basal cell carcinoma (BCC) of medial canthus of left eye (06/20/17) Abnormal visual perception (09/11/15) Colon polyp Hemorrhoids Herpes Osteopenia Atrial arrhythmia Prostate cancer Mucous cyst of finger Lyme disease Low back pain Basal cell carcinoma, face BPH (benign prostatic hyperplasia) Cataracts, bilateral Surgical History (Updated 02/11/21 @ 09:16 by Arianne Tesfaye MD, [place]) H/O removal of cyst History of prostate surgery History of surgical procedure Status post inguinal hernia repair Right index finger Excision of mucous cyst Prostatectomy PROSTATE REPAIR calcification w/ residual infx-surgery Repair of inguinal hernia RIGHT Colonoscopy - [facility] 2003;tubular adenoma CARDIAC CATH LEFT Family History Mother , 80'S Diabetes Failure to thrive Father , 80'S Stroke X 2 Asthma Sister Rheumatoid arthritis Sister , 60 Personal history of malignant neoplasm COLON Grandfather Stroke Grandfather Personal history of malignant neoplasm COLON Grandmother Personal history of malignant neoplasm BREAST Social History (Updated 12/26/22 @ 12:13 by Antonella Link) Smoking/Tobacco Use Status: Never Tobacco: How many years used: 1 Second Hand Exposure: Yes Smoking risk assessment performed?: Yes Alcohol Intake: current Alcohol Intake frequency: 0-2 drinks per day Alcohol type: wine Drug use: Daily Substance use type: marijuana Household members: significant other Housing: house Communication Needs: None Do you need help understanding health information?: Never Pets and animals: Yes Pets and animals: dog(s) Sexually active: Yes Do you think of yourself as: straight/heterosexual Current gender identity: male What is your relationship status?: living with partner How often do you talk on the phone with friends or family?: twice per week How often do you get together with friends or relatives?: twice per week How often do you attend denominational or catholic services?: 4 or more times per year Do you belong to any clubs or organized social groups?: no Panel score (0-1 are the most socially isolated patients): 3 What type of physical activity do you participate in: none Frequency: does not exercise Lorraine/Taoism: Pentecostalism Special lorraine needs: Yes (Pentecostalism/Mandaen) Seatbelt use: always Drive intox or ride w/intox coach driver: No Do you feel safe at home: Yes Do you feel safe in your relationship?: Yes PAWSS Have you Been Recently Intoxicated or Drunk Within the Last 30 days?: No Have you Ever Experienced Previous Episodes of Alcohol Withdrawal?: No Have you ever Experienced Withdrawal Seizures?: No Have you ever Experienced Delirium Tremens(DT)s?: No Have you ever undergone Alcohol Rehabilitation Treatment (i.e, inpt ot outpatient treatment programs)?: No Have you ever Experienced Blackouts?: No Have you ever Combined Alcohol with other Downers within the last 90 days?: No Have you ever Combined Alcohol with any other Substance of Abuse during the last 90 days?: No Positive Blood Alcohol level on Presentation? [PCS.BAL]: Unable to Obtain Evidence of Increased Autonomic Activity (i.e. HR>120, tremor, sweating, agitation, nausea)?: No Result: 0
[2025-03-25 10:35] LABS: Abs Immature Grans 0.02 10^3/uL (0.0-0.06); HCT 45.1 % (40.0-50.0); HGB 14.8 g/dL (13.5-17.5); Immature Grans % 0.3 %; MCH 31.2 pg (27.0-33.0); MCHC 32.8 % (32.0-36.0); MCV 95 fL (80-95); MPV 9.0 fL (8.0-11.0); Platelet Count 262 10^3/uL (130-400); RBC 4.75 10^6/uL (4.36-5.78); RDW 14.3 % (11.8-14.1); RDW-SD 50.1 fL; WBC 6.09 10^3/uL (4.4-10.8)
--- NOTE | 2025-03-25 10:47 | DI.RAD_ITS ---
Exam(s) XR CHEST 2V PA LATERAL EXAM: XR CHEST 2V PA LATERAL CLINICAL HISTORY: weakness TECHNIQUE: 2D digital imaging was performed of the chest. Two images were obtained. AP and lateral views were obtained. COMPARISON: CR CHEST 2 VIEWS PA,LAT from 09/27/2010 CR CHEST 2 VIEWS PA,LAT from 09/23/2016 FINDINGS: MEDIASTINUM: Normal. HEART: Normal. PULMONARY VASCULATURE: Normal. LUNGS: Clear. PLEURAL SPACE: No pleural effusion or pneumothorax. BONE:Within normal limits for the patient's age. OTHER FINDINGS:Normal. IMPRESSION: 1. No acute pulmonary findings. 2. The preliminary [facility] report was reviewed. DATA REPOSITORY: RADIATION DOSE DELIVERED:
--- NOTE | 2025-03-25 10:48 | DI.CT_ITS ---
Exam(s) CT HEAD WO EXAM: CT HEAD WO CLINICAL HISTORY: Weakness, difficulty standing, hx of prostate CA. TECHNIQUE: Imaging Protocol: Axial computed tomography images with coronal and sagittal reformatted images were created and reviewed COMPARISON: No exams were available for comparison FINDINGS: Ventricles and Extra axial spaces: Normal in size and morphology for the patient's age. Hemorrhage: None. Cerebral parenchyma: There are areas of decreased attenuation in the white matter consistent with chronic microvascular ischemic disease. There is no acute territorial infarct present. No acute mass effect is seen. Midline shift: None. Brainstem/Cerebellum: Normal. Calvarium: Normal. Visualized Paranasal sinuses/Mastoids: Clear. Soft Tissues: Unremarkable. IMPRESSION: 1. No acute intracranial process. 2. The preliminary [facility] report was reviewed. RADIATION DOSE DELIVERED: 911.24mGy.cm Total DLP DATA REPOSITORY: All CT scans at this facility are submitted to the National Radiology Data Registry (NRDR) Dose Index Registry (DIR) with the [employer] ([employer]). RADIATION OPTIMIZATION: All CT scans at this facility use at least one of these dose optimization techniques: automated exposure control; mA and/or kV adjustment per patient size (includes targeted exams where dose is matched to clinical indication); or iterative reconstruction.
[2025-03-25] MEDS: Normal Saline 1,000 ML 1000 ML IV (10:56)
[2025-03-25] MEDS: diazePAM 2 MG TAB PO (11:00)
[2025-03-25 11:02] LABS: Magnesium 2.1 mg/dL (1.8-2.4); TSH (W/Ref FT4) 1.23 uIU/mL (0.36-3.74); Troponin I 34 ng/L (<or=76)
[2025-03-25 11:15] LABS: Creatine Kinase 145 U/L (39-308)
--- NOTE | 2025-03-25 11:55 | DI.[facility]_ITS ---
PROCEDURE INFORMATION: Exam: CT Head Without Contrast Exam date and time: 03/25/2025 10:38 AM Age: 89 years old Clinical indication: Other: Weakness/difficulty standing; HX prostate CA TECHNIQUE: Imaging protocol: Computed tomography of the head without contrast. Radiation optimization: All CT scans at this facility use at least one of these dose optimization techniques: automated exposure control; mA and/or kV adjustment per patient size (includes targeted exams where dose is matched to clinical indication); or iterative reconstruction. COMPARISON: CT HEAD WO 06/04/2020 12:59 PM FINDINGS: Brain: Periventricular and subcortical white matter areas of hypoattenuation, likely chronic small vessel ischemic change, demyelination, or gliosis. There is parenchymal atrophy. No intracranial mass, acute hemorrhage, or acute infarction. Cerebral ventricles: No ventriculomegaly. Paranasal sinuses: Visualized sinuses are unremarkable. No fluid levels. Mastoid air cells: Normal as visualized. Bones: Unremarkable. No acute fracture. Soft tissues: Unremarkable. Vasculature: Atherosclerotic vascular disease. IMPRESSION: No acute intracranial abnormality. Dictated and Authenticated by: Shemar Patterson MD. Orderin Inez Luna MD
--- NOTE | 2025-03-25 11:57 | DI.[facility]_ITS ---
PROCEDURE INFORMATION: Exam: XR Chest Exam date and time: 03/25/2025 10:39 AM Age: 89 years old Clinical indication: Other: Weakness TECHNIQUE: Imaging protocol: Radiologic exam of the chest. Views: 2 views. COMPARISON: CT HEAD CERV SPINE FACIAL WO 04/20/2020 12:35 PM FINDINGS: Lungs: No focal consolidations or pulmonary nodules. No pulmonary edema. Pleural spaces: Normal. Heart/Mediastinum: Normal. Vasculature: Atherosclerotic vascular disease. Bones/joints: Multilevel thoracic spine degenerative disc space narrowing and osteophyte formation. IMPRESSION: No acute cardiopulmonary abnormality. Dictated and Authenticated by: Shemar Patterson MD. Orderin Inez Luna MD
[2025-03-25 12:04] LABS: Glucose Negative (Negative)
[2025-03-25 12:09] LABS: Troponin I 29 ng/L (<or=76)
== END 2025-03-25 12:45 | disposition home or self-care (01) ==
PROVIDERS: Emergency Provider General Practice; PCP Family Medicine
DX: F10.139 Alcohol abuse with withdrawal, unspecified (principal); R00.1 Bradycardia, unspecified; I10 Essential (primary) hypertension; I25.2 Old myocardial infarction
CPT/HCPCS: 82550; 93005; 96360; 99284; 70450; 71046; 81003; 83605; 83735; 84443; 84484; 85025; 93010

== ENCOUNTER 2025-04-04 01:30 | Emergency (ER) | payer MEDICARE, SELFPAY ==
[2025-04-04 01:39] VITALS: BP 163/90; PULSE 56; RESP 16; TEMP 35.9; O2SAT 98
[2025-04-04 01:50] LABS: Glucose Negative (Negative)
[2025-04-04 02:02] LABS: Abs Immature Grans 0.01 10^3/uL (0.0-0.06); HCT 45.0 % (40.0-50.0); HGB 14.8 g/dL (13.5-17.5); Immature Grans % 0.2 %; MCH 31.1 pg (27.0-33.0); MCHC 32.9 % (32.0-36.0); MCV 95 fL (80-95); MPV 8.9 fL (8.0-11.0); Platelet Count 293 10^3/uL (130-400); RBC 4.76 10^6/uL (4.36-5.78); RDW 13.9 % (11.8-14.1); RDW-SD 48.6 fL; WBC 5.69 10^3/uL (4.4-10.8)
[2025-04-04] MEDS: Normal Saline 250 ML 500 ML IV (02:06)
--- NOTE | 2025-04-04 02:10 | W.ED.GENAD ---
Discharge Plan Disposition Patient Disposition: Home Condition: Improving Discharge Details Clinical Impression: Acute right flank pain Primary Care Provider: Arianne Tesfaye ED Provider: Jesus Rendon Home Meds and New Rx's Prescriptions: No Action multivitamin Tablet 1 tab PO DAILY Qty: 1 0RF acetaminophen 325 mg tablet 650 mg PO BID PRN amlodipine 10 mg tablet 10 mg PO DAILY Qty: 90 4RF losartan 25 mg tablet 25 mg PO DAILY Qty: 90 7RF ascorbic acid (vitamin C) 1,000 MG tablet 1,000 mg PO DAILY glucosam-chond sj-ihjhmi-yw ac 1 EACH capsule 2 cap PO DAILY Patient Comments: 11-10-17 pt reports that he is only taking one tablet daily. hb cholecalciferol (vitamin D3) [Vitamin D3] 2,000 UNIT capsule 2,000 unit PO BID cod liver oil (bulk) 1 ML oil 1 tsp Miscellaneous DAILY vitamin B complex [B Complete] Tablet 1 tab PO DAILY melatonin 5 mg capsule 5 mg PO HS Qty: 90 4RF Discharge Instructions Instructions: Flank Pain ED Additional Instructions: I have not determined a cause for the right flank pain., Things that cause flank pain or kidney stones moving between the kidney and the bladder through the tube that connects them, stones that are in the gallbladder that caught as a try and pass into your intestines, and vascular problems in the arteries or veins in your aorta, kidneys, or liver. Some of these things, especially the vascular problems, can be immediately life-threatening or cause long-term disability if they are not properly investigated and treated. For this reason, you should seek medical attention urgently if your symptoms are recurrent and severe. You can take up to two 200 mg ibuprofen tablets every 6 hours as needed for pain. You can take two 325 mg acetaminophen tablets every 4-6 hours as needed for symptoms of pain. You can follow-up with your regular primary care doctor for reevaluation and further management if symptoms are ongoing. You can always return to the ER for any new concerns or sudden changes in your health which you feel require emergency medical attention. Discharge Data Discharge Physician: Jesus Rendon [facility] General Date/Time Provider Initiated Documentation: 04/04/25 01:33. HPI Narrative: The patient is an 89-year-old male, with a past medical history significant for hypertension and prior prostatic malignancy with radical prostatectomy, presents to emergency department this evening complaining of sharp pain in the right flank which awoke him from sleep approximately 30 minutes prior to arrival in the emergency room. Patient reports that the pain was severe and nonradiating. He reports that it was in his costovertebral angle and his upper right flank. The patient denies having any associated nausea or vomiting at the onset of symptoms. Patient does not report the pain radiating to his testicles or penis. The patient urinated after the pain began and did not notice any changes in the discomfort no changes in urine color or odor. The patient states that the pain has now almost completely resolved. He tells me if it felt like this, I would not come to the ER. He denies any recent illnesses such as coughs, colds, fevers, chills, or GI symptoms. Related Data Home Medications ?Medication ?Instructions ?Recorded ?Confirmed ascorbic acid (vitamin C) 1,000 mg 1,000 mg PO DAILY 09/17/12 04/04/25 tablet mizexjlsak-gyntmirnsu-dgixuhur-hyalur 2 cap PO DAILY 09/17/12 04/04/25 ac 375 mg-300 mg-175 mg-2 mg cap cholecalciferol (vitamin D3) 50 2,000 unit PO BID 11/16/14 04/04/25 mcg (2,000 unit) capsule (Vitamin D3) cod liver oil (bulk) 100 % 1 tsp miscellaneous DAILY 12/17/15 04/04/25 multivitamin 1 tab PO DAILY #1 tab 03/04/22 04/04/25 vitamin B complex (B Complete 1 tab PO DAILY 03/05/22 04/04/25 tablet) melatonin 5 mg capsule 5 mg PO HS #90 caps 11/20/23 04/04/25 acetaminophen 325 mg tablet 650 mg PO BID PRN 07/26/24 04/04/25 amlodipine 10 mg tablet 10 mg PO DAILY #90 tabs 07/26/24 04/04/25 losartan 25 mg tablet 25 mg PO DAILY #90 tabs 07/26/24 04/04/25 Previous Rx's ?Medication ?Instructions ?Recorded multivitamin 1 tab PO DAILY #1 tab 03/04/22 melatonin 5 mg capsule 5 mg PO HS #90 caps 11/20/23 amlodipine 10 mg tablet 10 mg PO DAILY #90 tabs 07/26/24 losartan 25 mg tablet 25 mg PO DAILY #90 tabs 07/26/24 Allergies Allergy/AdvReac Type Severity Reaction Status Date / Time terazosin HCl (From Hytrin) AdvReac Severe orthostatic Verified 04/04/25 01:44 hypotension General Stated Complaint: FlankPain SONDRA: 3 Exam Const General: cooperative, healthy appearing, no acute distress, well developed and well groomed Resp Effort & Inspection: normal respiratory effort Auscultation: clear to auscultation bilaterally Cardio Rate: regular rate Rhythm: regular rhythm Heart Sounds: S1 normal and S2 normal GI Palpation: soft Auscultation: normal bowel sounds Other: There appears to be a ventral hernia centrally, and some rectus diastases present. There is a well-healed surgical scar below the umbilicus which appears remote. Back/Spine/Pelvis Back: no CVA tenderness and back tenderness Thoracic/Lumbar Spine: thoracic and lumbar spine normal to inspection Skin General skin exam: no rashes or lesions noted, elasticity normal and turgor normal Neuro General: patient alert, gait normal, moves all extremities and CN's II-XI intact bilaterally Course The patient's remaining labs were completely negative. I reevaluated him and he tells me that he is not interested in additional testing, including CT scanning. I explained to him that I had not discovered a specific etiology for the onset of his pain. My best guess is that the patient likely has a small kidney stone moving through his collecting system. I am not fully excluded other etiologies such as cholelithiasis or vascular injury in the abdomen. We discussed this and that especially the vascular injuries could be immediately life-threatening. I recommended that the patient seek medical attention emergently if his symptoms return or not well-controlled. The patient had refused IV acetaminophen and IV saline here in the emergency room. The patient was again offered additional testing and declined in favor of wanting to go home. He claims understand that I have not fully determine the underlying cause of his pain and that some of this causes can be life-threatening. Vital Signs Vital signs: Vital Signs Temperature 35.9 C L 04/04/25 01:39 Pulse 56 L 04/04/25 01:39 Respiratory Rate 16 04/04/25 01:39 Blood Pressure 163/90 H 04/04/25 01:39 Pulse Oximetry 98 04/04/25 01:39 Temperature 35.9 C L 04/04/25 01:39 Temperature Source Tympanic 04/04/25 01:39 Pulse 56 L 04/04/25 01:39 Respiratory Rate 16 04/04/25 01:39 Blood Pressure 163/90 H 04/04/25 01:39 Blood Pressure Position Sitting 04/04/25 01:39 Pulse Oximetry 98 04/04/25 01:39 Oxygen Delivery Method Room Air 04/04/25 01:39 Oxygen Flow Rate 0 04/04/25 01:39 Pain Level 8 04/04/25 01:47 Lab/Test Results Lab/Test Results: Laboratory Tests Range/Units 04/04/25 04/04/25 01:37 01:50 WBC (4.4-10.8) 10^3/uL 5.69 RBC (4.36-5.78) 10^6/uL 4.76 Hgb (13.5-17.5) g/dL 14.8 Hct (40.0-50.0) % 45.0 MCV (80-95) fL 95 MCH (27.0-33.0) pg 31.1 MCHC (32.0-36.0) % 32.9 RDW (11.8-14.1) % 13.9 Plt Count (130-400) 10^3/uL 293 MPV (8.0-11.0) fL 8.9 Immature Gran % % 0.2 Neutrophils % % 59.6 Lymphocytes % % 26.4 Monocytes % % 9.8 Eosinophils % % 2.8 Basophils % % 1.2 Nucleated RBC % (0.0-0.3) % 0.0 Absolute Neutrophils (1.2-6.7) 10^3/uL 3.39 Absolute Lymphocytes (1.2-3.4) 10^3/uL 1.50 Absolute Monocytes (0.1-0.8) 10^3/uL 0.56 Absolute Eosinophils (0.0-0.7) 10^3/uL 0.16 Absolute Basophils (0.0-0.2) 10^3/uL 0.07 Urine Color (Yellow) Yellow Urine Clarity (Clear) Clear Urine pH (5-8) 6.0 Ur Specific [place] (1.005-1.025) 1.025 Urine Protein (Neg-Trace) mg/dL Negative Urine Ketones (Negative) mg/dL Trace H Urine Blood (Negative) Negative Urine Nitrite (Negative) Negative Urine Bilirubin (Negative) Negative Urine Urobilinogen (Up to 0.2) mg/dL 0.2 Ur Leukocyte Esterase (Negative) Negative Urine Glucose (Negative) mg/dL Negative Medical Decision Making The patient was seen and examined. He is in no distress and has normal vital signs here in the emergency room. The patient has a urine which does not appear to have any abnormal cell form such as red or white cells within it. The patient has a normal blood count. The patient had no ventral abdominal right upper quadrant pain palpation or a Lawson sign present. The patient had no pain to palpation of the muscular compartments of the right flank or the central posterior spinous processes. The patient states that this pain has almost fully resolved now that he has been here in the emergency room. This could represent an occult kidney stone, however the patient has no known prior history of this that he can relate to me, despite having some mention of it in his chart. None of his last 2 or 3 urology notes mentioned a prior history of renal colic. Also, the patient has not occult blood in his urine which makes a kidney stone less likely. This could represent some form of cholelithiasis, but in the absence of having a Lawson sign, this also makes this seems somewhat less likely. This does not appear to be a musculoskeletal form of pain that I can determine, or at least not 1 that is ongoing at this time. The patient has pending right upper quadrant labs and a lipase. It seems unlikely that this would represent acute aortic pathology, given the fact that the patient's symptoms have now fully resolved. Certainly there does not appear to be any ongoing vascular catastrophe in the abdomen at this time, as the patient is stable and has no ongoing pain. I will discuss the option of obtaining a CT scan of the abdomen and pelvis with the patient after the remaining labs have returned. This would be more prudent if the pain returns at all, as this could be predictive of stone migrating through the collecting system. PFSH All Active Problems (Updated 04/04/25 @ 02:57 by Jesus Rendon MD) Acute right flank pain (Acute) Alcohol withdrawal (Acute) Marijuana use (Acute) Decreased hearing (Acute) Peripheral neuropathy (Acute) Nail dystrophy (Acute) Onychomycosis (Acute) Pelvic pain in male (Acute) DNR (do not resuscitate) (Acute) Physician orders for life-sustaining treatment (POLST) form indicates patient wish for lh-sjp-pikxcnrmbmf status (Acute) Neck pain (Acute) Herpes zoster (Acute) Essential hypertension (Acute) Grief (Acute) Urinary urgency (Acute) Vitamin D deficiency (Acute 12/06/13) Tubular adenoma (Acute 11/18/07) Prostate cancer (Acute 10/03/14) Polyp of colon (Acute 06/04/07) tubular adenoma Osteopenia (Acute 07/08/13) bone density 2014 Compression fx Herpes (Acute 11/29/13) Hemorrhoids (Acute) Facial basal cell cancer (Acute 06/01/17) Diverticulosis (Acute 05/25/12) Cardiac dysrhythmia, unspecified (Acute 09/16/12) HX of mitral insufficiency and trigeminy Benign prostatic hyperplasia (Acute) HX of recurrent UTI's-prostatic sones; removal of >30 stones Atrial arrhythmia (Acute) mild Age-related nuclear cataract of both eyes (Acute) 10/11/15; [facility] Age-related macular degeneration, dry (Acute) 10/11/15-[facility] Acute bilateral low back pain without sciatica (Acute 12/17/15) Medical History (Updated 04/04/25 @ 02:57 by Jesus Rendon MD) Encounter for wound re-check Visit for suture removal Visit for wound check Pelvic cellulitis Lesion of nose Toenail deformity Otalgia Edema Sebaceous cyst Cerumen impaction Inguinal hernia Encounter for screening colonoscopy Current visit- YES Urinary tract infectious disease (06/04/06) frequent UTI's; ? 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 Basal cell carcinoma (BCC) of medial canthus of left eye (06/20/17) Abnormal visual perception (09/11/15) Colon polyp Hemorrhoids Herpes Osteopenia Atrial arrhythmia Prostate cancer Mucous cyst of finger Lyme disease Low back pain Basal cell carcinoma, face BPH (benign prostatic hyperplasia) Cataracts, bilateral Surgical History (Updated 02/11/21 @ 09:16 by Arianne Tesfaye MD, [place]) H/O removal of cyst History of prostate surgery History of surgical procedure Status post inguinal hernia repair Right index finger Excision of mucous cyst Prostatectomy PROSTATE REPAIR calcification w/ residual infx-surgery Repair of inguinal hernia RIGHT Colonoscopy - [facility] 2003;tubular adenoma CARDIAC CATH LEFT Family History Mother , 80'S Diabetes Failure to thrive Father , 80'S Stroke X 2 Asthma Sister Rheumatoid arthritis Sister , 60 Personal history of malignant neoplasm COLON Grandfather Stroke Grandfather Personal history of malignant neoplasm COLON Grandmother Personal history of malignant neoplasm BREAST Social History (Updated 12/26/22 @ 12:13 by Antonella Link) Smoking/Tobacco Use Status: Never Tobacco: How many years used: 1 Second Hand Exposure: Yes Smoking risk assessment performed?: Yes Alcohol Intake: current Alcohol Intake frequency: 0-2 drinks per day Alcohol type: wine Drug use: Daily Substance use type: marijuana Household members: significant other Housing: house Communication Needs: None Do you need help understanding health information?: Never Pets and animals: Yes Pets and animals: dog(s) Sexually active: Yes Do you think of yourself as: straight/heterosexual Current gender identity: male What is your relationship status?: living with partner How often do you talk on the phone with friends or family?: twice per week How often do you get together with friends or relatives?: twice per week How often do you attend confucianist or scientology services?: 4 or more times per year Do you belong to any clubs or organized social groups?: no Panel score (0-1 are the most socially isolated patients): 3 What type of physical activity do you participate in: none Frequency: does not exercise Lorraine/Buddhism: Methodist Special lorraine needs: Yes ([employer]ist/Confucianism) Seatbelt use: always Drive intox or ride w/intox route delivery driver: No Do you feel safe at home: Yes Do you feel safe in your relationship?: Yes
[2025-04-04 02:17] LABS: ALT 25 U/L (16-63); AST 20 U/L (15-37); Albumin 4.1 g/dL (3.4-5.0); Alkaline Phosphatase 89 U/L (46-116); Anion Gap 9.0 mmol/L (3-11); BUN 20 mg/dL (7-18); Bilirubin, Total 0.5 mg/dL (0.2-1.0); CO2 29.0 mmol/L (21.0-32.0); Calcium 9.0 mg/dL (8.5-10.1); Chloride 102 mmol/L (98-107); Estimated GFR 64.57 (mL/min/1.73m2); Glucose 94 mg/dL (74-106); Lipase 31 U/L (<78); Potassium 4.6 mmol/L (3.5-5.1); Sodium 140 mmol/L (136-145); Total Protein 7.8 g/dL (6.4-8.2)
[2025-04-04 02:48] VITALS: BP 158/82; PULSE 60; RESP 16; O2SAT 98
== END 2025-04-04 03:09 | disposition home or self-care (01) ==
PROVIDERS: Emergency Provider Emergency Medicine Emergency Medical Services; PCP Family Medicine
DX: R10.9 Unspecified abdominal pain (principal)
CPT/HCPCS: 99283 ×2; 36415; 80053; 83690; 81003; 85025